=== PATIENT | female | born 1940 | race Caucasian/White ===

== ENCOUNTER 2018-04-28 09:37 | Day surgery (SDC) | payer MEDICARE, OTHER, SELFPAY ==
[2018-04-28 09:57] VITALS: BP 149/79; PULSE 71; RESP 16; TEMP 36.5; O2SAT 98
--- NOTE | 2018-04-28 11:36 | PM.HP.1 ---
History of Present Illness Date Patient Seen: 04/28/18 Time Patient Seen: 11:36 Chief complaint: colonoscopy [id number] Narrative: The patient is woman whose last colonoscopy was 15 years ago. She is here for a screening examination. No family history of colon cancer no blood in her stool. Patient History Medical History Hypertension, essential (Acute) Surgical History History of inguinal hernia repair (Resolved) Family & Social History Family History: Reviewed 04/28/18 by Melchor Bueno MD Social History: household members spouse Smoked for 10 years. Quit a long time ago. Review of Systems Review of Systems No known medication allergies. All systems reviewed & are unremarkable except as noted in HPI and below Exam Vital Signs (past 8 hours): - 04/28/18 09:57 Temperature 97.7 F Pulse Rate 71 Respiratory Rate 16 Blood Pressure 149/79 H Pulse Oximetry 98 Oxygen Delivery Method Room Air Narrative Exam Narrative: Operative no apparent distress. Her lungs are clear. Heart regular rate and rhythm without murmur gallop. Abdomen is protuberant soft nontender without mass. Liver and spleen are not enlarged. Patient is alert and oriented. Assessment & Plan Plan: Assessment/Plan Narrative: Patient for screening colonoscopy. I have discussed the procedure and the rationale with the patient including risks of bleeding, perforation which would necessitate a major operation, failure to find remove all lesions and the potential to tattoo. They appeared to understand and wished to proceed.
--- NOTE | 2018-04-28 11:40 | PM.PREOP ---
Pre-operative Note Interval Note Pre-op Check: Yes History & Physical exam performed today by Physician Changes: No ASA Class (for procedural sedation): II
[2018-04-28] MEDS: MIDAZOLAM 5 MG/5 ML VIAL IV (11:57)
[2018-04-28] MEDS: fentaNYL 250 MCG/5 ML INJ IV (11:58)
--- NOTE | 2018-04-28 12:13 | PM.OP.ENDO ---
Operative Date/Time/Diagnoses Date of procedure: 04/28/18 Time of procedure: 12:14 Pre-op diagnosis: Screening examination. Last colonoscopy 15 years ago. Post-op diagnosis: same (Sigmoid diverticulosis. Otherwise normal exam.) Procedure & Clinicians Study performed: Colonoscopy Same procedure as scheduled: Yes Indications: Screening Surgeon: Melchor Bueno Procedure Notes SCOAP/Timeout: Performed Procedure in detail: The patient was placed in the left lateral decubitus position and underwent IV sedation directed by the surgeon consisting of fentanyl and Versed. Digital exam was unremarkable. The scope was inserted and advanced through the rectum into the sigmoid, descending, transverse, and ascending colon.[The patient had extensive sigmoid diverticulosis with some tortuosity and mild narrowing.]. The cecum was reached identified by the ileocecal valve and the appendiceal opening. The ileocecal valve was[successfully] cannulated. The terminal ileum was normal in appearance. The scope was gradually brought out. No Polyps were found. The scope ultimately was retroflexed in the rectum. The appearance was[normal]. The scope was removed and the patient tolerated the procedure well Scope withdrawal time: 11 min approximate Sedation minutes: 24 Findings: diverticulosis (Sigmoid) Specimen(s): none sent Complications: none Recommendations: Other recommendation (Future colonoscopy for symptoms only. Patient exceeds the age for routine screening and has no known high risk issues.) Plan for aftercare: Follow-up with primary doctor Follow up: as needed Disposition: PACU
[2018-04-28 12:19] VITALS: BP 114/63; PULSE 69; RESP 15; TEMP 36.7
--- NOTE | 2018-04-28 12:19 | P.OP.ENDO_ITS ---
Operative Date/Time/Diagnoses Date of procedure: 04/28/18 Time of procedure: 12:14 Pre-op diagnosis: Screening examination. Last colonoscopy 15 years ago. Post-op diagnosis: same (Sigmoid diverticulosis. Otherwise normal exam.) Procedure & Clinicians Study performed: Colonoscopy Same procedure as scheduled: Yes Indications: Screening Surgeon: Melchor Bueno Procedure Notes SCOAP/Timeout: Performed Procedure in detail: The patient was placed in the left lateral decubitus position and underwent IV sedation directed by the surgeon consisting of fentanyl and Versed. Digital exam was unremarkable. The scope was inserted and advanced through the rectum into the sigmoid, descending, transverse, and ascending colon.[The patient had extensive sigmoid diverticulosis with some tortuosity and mild narrowing.]. The cecum was reached identified by the ileocecal valve and the appendiceal opening. The ileocecal valve was[ successfully] cannulated. The terminal ileum was normal in appearance. The scope was gradually brought out. No Polyps were found. The scope ultimately was retroflexed in the rectum. The appearance was[normal]. The scope was removed and the patient tolerated the procedure well Scope withdrawal time: 11 min approximate Sedation minutes: 24 Findings: diverticulosis (Sigmoid) Specimen(s): none sent Complications: none Recommendations: Other recommendation (Future colonoscopy for symptoms only. Patient exceeds the age for routine screening and has no known high risk issues. ) Plan for aftercare: Follow-up with primary doctor Follow up: as needed Disposition: PACU
[2018-04-28 12:23] VITALS: BP 131/56; PULSE 83; RESP 18; O2SAT 97
[2018-04-28 12:28] VITALS: BP 121/60; PULSE 72; RESP 15; O2SAT 98
[2018-04-28 12:35] VITALS: BP 130/68; PULSE 72; RESP 15; TEMP 36.1; O2SAT 95
== END 2018-04-28 12:48 | disposition home or self-care (01) ==
PROVIDERS: Visit Provider Specialist
PROC: 0DJD8ZZ Inspection of Lower Intestinal Tract, Via Natural or Artificial Opening Endoscopic (ICD-10-PCS; CPT 45378; principal; 2018-04-28 11:00)
DX: Z12.11 Encounter for screening for malignant neoplasm of colon (principal); K57.30 Diverticulosis of large intestine without perforation or abscess without bleeding; I10 Essential (primary) hypertension; Z87.891 Personal history of nicotine dependence
CPT/HCPCS: 45378; 99152; 99153; J2250; J3010

== ENCOUNTER 2021-01-30 10:26 | Emergency (ER) | payer MEDICARE, OTHER, SELFPAY ==
[2021-01-30] VITALS (8 sets, daily range): BP systolic 116–138; BP diastolic 63–64; PULSE 68–77; RESP 14; TEMP 36.9; O2SAT 97–100
--- NOTE | 2021-01-30 11:26 | ED.GIBLEED ---
HPI - GI Bleed General Chief complaint: GI Bleed Stated complaint: diarrhea, blood in stool Time Seen by Provider: 01/30/21 10:57 Source: patient Mode of arrival: Ambulatory Limitations: no limitations History of Present Illness HPI Narrative: Patient is an 81-year-old female. Not on anticoagulation. Was sent to the emergency department by walk-in clinic for evaluation of rectal bleeding. Patient states that over the past 24 hours she has had multiple episodes of non painful rectal bleeding. States it is bright red in color. Has not had any vomiting. No fevers. No recent antibiotics. She did recently travel to this area from [place] after spending greater than 1 year in [place]. Has had an hernia repair in the past but nothing recent. No urinary symptoms. She states she did have some abdominal discomfort prior to having the bowel movement but the actual bowel movement was not painful. Related Data Allergies Allergy/AdvReac Type Severity Reaction Status Date / Time No Known Drug Allergies Allergy Verified 01/30/21 12:05 Review of Systems Constitutional Constitutional: Denies fever(s) and Denies headache(s) ENT Ears, Nose, Mouth, and Throat: Denies headache(s) Cardiovascular Cardiovascular: Denies chest pain, Denies rapid heart rate and Denies dyspnea Respiratory Respiratory: Denies dyspnea Gastrointestinal Gastrointestinal: Denies nausea and Denies vomiting Comments: Bright red blood per rectum Genitourinary Genitourinary: Denies hematuria and Denies dysuria Genitourinary: Denies hematuria and Denies dysuria Musculoskeletal Musculoskeletal: Denies back pain and Denies myalgias Integumentary/Breasts Skin/Breast: Denies rash Neurologic Neurologic: Denies behavioral changes and Denies headache(s) Psychiatric Psychiatric: Denies behavioral changes Endocrine Endocrine: Reports system reviewed and no additional complaints, except as documented Hematologic/Lymphatic On Anticoagulants: No Allergic/Immunologic Allergic/Immunologic: Reports system reviewed and no additional complaints, except as documented Patient History Medical History (Updated 01/30/21 @ 13:12 by Aden Urbina DO) Hypertension, essential Surgical History (Updated 04/28/18 @ 11:37 by Melchor Bueno MD) History of inguinal hernia repair Social History household members: spouse Exam Initial Vital Signs Initial Vital Signs: Vital Signs Temperature 98.4 F 01/30/21 10:46 Pulse Rate 77 01/30/21 10:46 Respiratory Rate 14 01/30/21 10:46 Blood Pressure 116/63 01/30/21 10:46 Pulse Oximetry 97 01/30/21 10:46 Const General: cooperative, healthy appearing, comfortable and well developed Limitations: mental status not altered HENMT Head: normal to inspection and normocephalic Resp Effort & Inspection: normal respiratory effort Auscultation: clear to auscultation bilaterally Cardio Rate: regular rate Rhythm: regular rhythm GI Inspection: non-distended Palpation: soft, No firm and No tender Skin Lesions: no lesions Rashes: no rashes Neuro General: patient alert and patient awake Cognition: normal cognition Speech: speech normal Extrem General: normal to inspection and capillary refill normal Psych Appearance: grossly normal and well kempt Course Orders Ordered: ED Orders 01/30/21 11:20 Complete Blood Count AUTO DIFF Stat Comprehensive Metabolic Panel Stat Lipase Stat Type and Screen Stat 01/30/21 11:46 CT abdomen pelvis w con Stat Discontinued Medications Sodium Chloride (Normal Saline 0.9%) 1,000 mls @ 500 mls/hr IV BOLUS ONE Stop: 01/30/21 13:27 Last Infusion: 01/30/21 13:13 Dose: 0 mls/hr Documented by: Admin: 01/30/21 12:03 Dose: 500 mls/hr Documented by: MARGIE Vital Signs Vital signs: Vital Signs - 8 hr 01/30/21 10:46 01/30/21 11:28 01/30/21 11:30 Temperature 98.4 F Pulse Rate 77 71 75 Respiratory Rate 14 Blood Pressure 116/63 117/63 Pulse Oximetry 97 99 97 01/30/21 12:17 01/30/21 12:30 01/30/21 13:00 Temperature Pulse Rate 70 68 73 Respiratory Rate Blood Pressure Pulse Oximetry 98 100 99 01/30/21 13:13 01/30/21 13:18 Temperature Pulse Rate 76 Respiratory Rate Blood Pressure 138/64 Pulse Oximetry 99 MDM - GI Bleed Lab Data Attestation: I reviewed the patient's lab results. Result diagrams: 01/30/21 11:20 01/30/21 11:20 Labs: Lab Results 01/30/21 01/30/21 01/30/21 Range/Units 11:20 11:20 11:20 WBC 12.8 H (4.5-11.0) X10^3/uL RBC 4.38 (4.0-5.2) X10^6/uL Hgb 12.0 (12.0-16.0) g/dL Hct 36.8 (36-46) % MCV 84.1 (80-100) fL MCH 27.5 (26-34) PG MCHC 32.7 (30-36) % RDW 22.9 H (11.6-14.8) % Plt Count 245 (150-400) X10^3/uL Neut % (Auto) 82.0 H (50-75) % Lymph % (Auto) 9.9 L (25-40) % [place] % (Auto) 6.5 (3-14) % Eos % (Auto) 1.0 L (2-4) % Baso % (Auto) 0.6 (0-2) % Neut # (Auto) 11689 H (6177-1283) /uL Lymph # (Auto) 1300 (3998-5318) /uL [place] # (Auto) 800 (0-900) /uL Eos # (Auto) 100 (0-450) /uL Baso # (Auto) 100 (0-100) /uL RBC Morphology Not Reportable Poikilocytosis 1+ H Anisocytosis 2+ H Sodium 138 (137-145) mmol/L Potassium 4.0 (3.4-5.1) mmol/L Chloride 104 (98-107) mmol/L Carbon Dioxide 24 (22-32) mmol/L BUN 30 H (7-17) mg/dL Creatinine 0.91 (0.52-1.04) mg/dL Estimated GFR 59.5 L (>60) mL/min BUN/Creatinine Ratio 33.0 H (6-22) Glucose 94 (80-110) mg/dL Calcium 8.7 (8.4-10.2) mg/dL Total Bilirubin 0.5 (0.2-1.3) mg/dL AST 37 H (14-36) IU/L ALT 18 (<35) IU/L Alkaline Phosphatase 90 (38-126) U/L Total Protein 7.0 (6.3-8.2) g/dL Albumin 4.0 (3.5-5.0) g/dL Globulin 3.0 (1.7-4.1) g/dL Albumin/Globulin Ratio 1.3 (1.0-2.8) Lipase 134 (23-300) U/L Blood Type O Positive Antibody Screen Negative Imaging Data CT scan - abdomen/pelvis: Radiologist's Impression: [address] [id number] Scan ReportSigned Patient: Sheila Smith LMR#: [id number]: 1940cct:[id number]/Sex: 81 / FDate of Service: 01/30/21Loc: EDAccession Number: [id number] Procedure: CT abdomen pelvis w con Ordering Provider: Aden Urbina D.O. PROCEDURE: CT ABDOMEN PELVIS W CON INDICATIONS: Abdominal pain with rectal bleeding TECHNIQUE: After the administration of intravenous contrast, 5 mm thick sections acquired from the diaphragm to the symphysis. 5 mm coronal and sagittal reformats were acquired. For radiation dose reduction, the following was used: automated exposure control, adjustment of mA and/or kV according to patient size. COMPARISON: None. FINDINGS: Image quality: Excellent. ABDOMEN: Lung bases: Lung bases are clear. Heart size is normal. Small subcentimeter hyperdensity in the subcapsular left hepatic lobe probably reflect cyst. Gallbladder contracted but otherwise unremarkable. Biliary system is non dilated. Pancreas enhances normally. Spleen is normal in size and enhancement. No adrenal nodules. Kidneys demonstrate normal size and enhancement, without hydronephrosis. Peritoneum and bowel: There is diffuse smooth wall thickening of the descending and sigmoid colon with minimal pericolonic colonic edema which may reflect colitis. Small amount of upstream fecal retention present without obstruction. No abscess or free air. Multiple diverticula also arise from the sigmoid colon. Nodes and vessels: No retroperitoneal or mesenteric adenopathy by size criteria. Aortic atherosclerotic vascular calcification noted without evidence of aneurysm. Miscellaneous: No ventral hernias. PELVIS: Genitourinary: Bladder wall thickness is normal. Miscellaneous: No inguinal hernias or adenopathy. Bones: Right total hip arthroplasty results in beam spray artifact limiting assessment of several images. Convex left thoracolumbar scoliosis present with degenerative disc disease arthropathy. IMPRESSION: 1. Probable mild left-sided colitis without evidence of abscess or obstruction. No free air. 2. Superimposed sigmoid diverticulosis without evidence of localized diverticulitis. 3. Chronic findings include degenerative lumbar levoscoliosis and aortic atherosclerotic vascular calcification Dictated by: Jez Bailon M.D. on 01/30/2021 at 11:39 Approved by: Jez Bailon M.D. on 01/30/2021 at 11:52 MDM Narrative Medical decision making narrative: Patient is not tachycardic. Not hypotensive. Not anemic. Does have diverticulosis but no signs of diverticulitis on the CT scan. She is passing damir blood. I suspect it is the diverticula that her bleeding. Will discharge patient home with instructions to contact General surgery to discuss the indications for a colonoscopy. She was also given strict return precautions. Both her and her family was at bedside expressed understanding and agreement. Discharge Plan Departure Patient Disposition: Home Clinical Impression: Bright red blood per rectum, Diverticulosis Instructions: Gastrointestinal Bleeding Activity Restrictions/Additional Instructions: I recommend that you contact the [facility] at [phone]. I recommend a follow-up with them to discuss the indications for a colonoscopy. I also recommend contact your primary provider for a follow-up. Return to the emergency department for any chest pain, shortness of breath, lightheadedness or any other new or worsening symptoms like we discussed. Referrals: Sophy Marrero PA-C [Primary Care Provider] -
[2021-01-30 11:30] LABS: Add Manual Diff / Slide Review NO; Basophils Absolute Auto 100 /uL (0-100); Basophils Percent Auto 0.6 % (0-2); Eosinophils Absolute Auto 100 /uL (0-450); Hematocrit 36.8 % (36-46); Lymphocytes Absolute Auto 1300 /uL (1100-4500); Lymphocytes Percent Auto 9.9 % (25-40); Mean Corpuscular HGB Conc 32.7 % (30-36); Mean Corpuscular Hemoglobin 27.5 PG (26-34); Mean Corpuscular Volume 84.1 fL (80-100); Monocytes Absolute Auto 800 /uL (0-900); Monocytes Percent Auto 6.5 % (3-14); Neutrophils Absolute Auto 10500 /uL (1500-7000); Platelet Count 245 X10^3/uL (150-400); Red Blood Cell Count 4.38 X10^6/uL (4.0-5.2); Red Cell Distribution Width 22.9 % (11.6-14.8); White Blood Cell Count 12.8 X10^3/uL (4.5-11.0)
[2021-01-30 11:43] LABS: Alanine Aminotransferase 18 IU/L (<35); Albumin Globulin Ratio 1.3 (1.0-2.8); Alkaline Phosphatase 90 U/L (38-126); Aspartate Aminotransferase 37 IU/L (14-36); Bilirubin Total 0.5 mg/dL (0.2-1.3); Blood Urea Nitrogen 30 mg/dL (7-17); Calcium 8.7 mg/dL (8.4-10.2); Carbon Dioxide 24 mmol/L (22-32); Chloride 104 mmol/L (98-107); Estimated Glomerular Filt Rate 59.5 mL/min (>60); Glucose 94 mg/dL (80-110); HEMOLYSIS 33 (0-50); Lipase 134 U/L (23-300); Sodium 138 mmol/L (137-145)
[2021-01-30 11:45] LABS: Poikilocytosis 1+
[2021-01-30 11:46] LABS: Anisocytosis 2+
--- NOTE | 2021-01-30 11:46 | DI.CT.S_ITS ---
PROCEDURE: CT ABDOMEN PELVIS W CON INDICATIONS: Abdominal pain with rectal bleeding TECHNIQUE: After the administration of intravenous contrast, 5 mm thick sections acquired from the diaphragm to the symphysis. 5 mm coronal and sagittal reformats were acquired. For radiation dose reduction, the following was used: automated exposure control, adjustment of mA and/or kV according to patient size. COMPARISON: None. FINDINGS: Image quality: Excellent. ABDOMEN: Lung bases: Lung bases are clear. Heart size is normal. Small subcentimeter hyperdensity in the subcapsular left hepatic lobe probably reflect cyst. Gallbladder contracted but otherwise unremarkable. Biliary system is non dilated. Pancreas enhances normally. Spleen is normal in size and enhancement. No adrenal nodules. Kidneys demonstrate normal size and enhancement, without hydronephrosis. Peritoneum and bowel: There is diffuse smooth wall thickening of the descending and sigmoid colon with minimal pericolonic colonic edema which may reflect colitis. Small amount of upstream fecal retention present without obstruction. No abscess or free air. Multiple diverticula also arise from the sigmoid colon. Nodes and vessels: No retroperitoneal or mesenteric adenopathy by size criteria. Aortic atherosclerotic vascular calcification noted without evidence of aneurysm. Miscellaneous: No ventral hernias. PELVIS: Genitourinary: Bladder wall thickness is normal. Miscellaneous: No inguinal hernias or adenopathy. Bones: Right total hip arthroplasty results in beam spray artifact limiting assessment of several images. Convex left thoracolumbar scoliosis present with degenerative disc disease arthropathy. IMPRESSION: 1. Probable mild left-sided colitis without evidence of abscess or obstruction. No free air. 2. Superimposed sigmoid diverticulosis without evidence of localized diverticulitis. 3. Chronic findings include degenerative lumbar levoscoliosis and aortic atherosclerotic vascular calcification Dictated by: Jez Bailon M.D. on 01/30/2021 at 11:39 Approved by: Jez Bailon M.D. on 01/30/2021 at 11:52
[2021-01-30] MEDS: SODIUM CHLORIDE 0.9% 1,000 ML 500 ML IV (12:03)
== END 2021-01-30 13:30 | disposition home or self-care (01) ==
PROVIDERS: Emergency Provider Emergency Medicine; PCP Physician Assistant
DX: K57.91 Diverticulosis of intestine, part unspecified, without perforation or abscess with bleeding (principal)
CPT/HCPCS: 36415; 74177; 80053; 83690; 85025; 86850; 86900; 86901; 96360; 99284; Q9967

== ENCOUNTER → 2021-02-08 15:02 | Outpatient (ROUT) | payer MEDICARE, OTHER, SELFPAY ==
[2021-02-08 15:47] LABS: Add Manual Diff / Slide Review NO; Basophils Absolute Auto 100 /uL (0-100); Basophils Percent Auto 0.7 % (0-2); Eosinophils Absolute Auto 200 /uL (0-450); Eosinophils Percent Auto 2.9 % (2-4); Hematocrit 39.6 % (36-46); Hemoglobin 12.8 g/dL (12.0-16.0); Lymphocytes Absolute Auto 2000 /uL (1100-4500); Lymphocytes Percent Auto 26.3 % (25-40); Mean Corpuscular HGB Conc 32.3 % (30-36); Mean Corpuscular Hemoglobin 28.1 PG (26-34); Mean Corpuscular Volume 86.8 fL (80-100); Monocytes Absolute Auto 700 /uL (0-900); Monocytes Percent Auto 9.3 % (3-14); Neutrophils Absolute Auto 4600 /uL (1500-7000); Neutrophils Percent Auto 60.8 % (50-75); Platelet Count 290 X10^3/uL (150-400); Red Blood Cell Count 4.56 X10^6/uL (4.0-5.2); Red Cell Distribution Width 22.3 % (11.6-14.8); White Blood Cell Count 7.6 X10^3/uL (4.5-11.0)
[2021-02-08 15:50] LABS: Alanine Aminotransferase 16 IU/L (<35); Albumin 4.2 g/dL (3.5-5.0); Albumin Globulin Ratio 1.4 (1.0-2.8); Alkaline Phosphatase 95 U/L (38-126); Aspartate Aminotransferase 29 IU/L (14-36); BUN Creatinine Ratio 33.3 (6-22); Blood Urea Nitrogen 26 mg/dL (7-17); Calcium 9.5 mg/dL (8.4-10.2); Carbon Dioxide 25 mmol/L (22-32); Chloride 100 mmol/L (98-107); Cholesterol 161 mg/dL (140-199); Estimated Glomerular Filt Rate > 60.0 mL/min (>60); Glucose 92 mg/dL (80-110); HDL Cholesterol 54 mg/dL (40-60); HEMOLYSIS < 15 (0-50); LDL Cholesterol Calculated 85 mg/dL (<100); Sodium 136 mmol/L (137-145); Total Protein 7.2 g/dL (6.3-8.2); Triglycerides 110 mg/dL (35-150)
[2021-02-08 16:01] LABS: Anisocytosis 1+
[2021-02-08 16:20] LABS: TSH w/ Reflex to FT4 5.97 uIU/mL (0.47-4.68)
[2021-02-08 17:18] LABS: Free T4, Direct Thyroxine 1.25 ng/dL (0.78-2.19)
== END ==
PROVIDERS: PCP Physician Assistant; Visit Provider Physician Assistant
DX: E78.5 Hyperlipidemia, unspecified (principal); I10 Essential (primary) hypertension; E03.9 Hypothyroidism, unspecified
CPT/HCPCS: 80053; 80061; 84439; 84443; 85025

== ENCOUNTER → 2021-02-21 15:14 | Outpatient (CLI) | payer MEDICARE, OTHER, SELFPAY ==
[2021-02-21 16:30] LABS: Add Manual Diff / Slide Review NO; Basophils Absolute Auto 100 /uL (0-100); Basophils Percent Auto 0.7 % (0-2); Eosinophils Absolute Auto 200 /uL (0-450); Eosinophils Percent Auto 2.2 % (2-4); Hematocrit 40.3 % (36-46); Hemoglobin 13.2 g/dL (12.0-16.0); Lymphocytes Absolute Auto 2100 /uL (1100-4500); Lymphocytes Percent Auto 27.4 % (25-40); Mean Corpuscular HGB Conc 32.7 % (30-36); Mean Corpuscular Hemoglobin 28.8 PG (26-34); Monocytes Absolute Auto 700 /uL (0-900); Monocytes Percent Auto 8.6 % (3-14); Neutrophils Absolute Auto 4700 /uL (1500-7000); Neutrophils Percent Auto 61.1 % (50-75); Platelet Count 266 X10^3/uL (150-400); Red Blood Cell Count 4.57 X10^6/uL (4.0-5.2); Red Cell Distribution Width 20.7 % (11.6-14.8); White Blood Cell Count 7.7 X10^3/uL (4.5-11.0)
[2021-02-21 16:36] LABS: Anisocytosis 1+
[2021-02-21 16:50] LABS: BUN Creatinine Ratio 30.3 (6-22); Blood Urea Nitrogen 27 mg/dL (7-17); Calcium 9.1 mg/dL (8.4-10.2); Carbon Dioxide 26 mmol/L (22-32); Chloride 101 mmol/L (98-107); Estimated Glomerular Filt Rate > 60.0 mL/min (>60); Glucose 119 mg/dL (80-110); HEMOLYSIS < 15 (0-50); Potassium 4.3 mmol/L (3.4-5.1); Sodium 138 mmol/L (137-145)
[2021-02-21 16:56] LABS: Hemoglobin A1C% w Est Avg Glu 5.4 % (4.0-6.0)
== END ==
PROVIDERS: PCP Physician Assistant; Referring Provider Orthopaedic Surgery; Visit Provider Orthopaedic Surgery
DX: Z01.818 Encounter for other preprocedural examination (principal); Z01.812 Encounter for preprocedural laboratory examination; R73.9 Hyperglycemia, unspecified; M25.561 Pain in right knee
CPT/HCPCS: 36415; 80048; 83036; 85025; 93005; 93010

== ENCOUNTER → 2021-03-03 11:15 | Outpatient (CLI) | payer MEDICARE, OTHER, SELFPAY ==
[2021-03-03 14:28] LABS: COVID19 -Nasal RAPID Negative (Negative)
== END ==
PROVIDERS: PCP Physician Assistant; Referring Provider Physician Assistant; Visit Provider Physician Assistant
DX: Z01.812 Encounter for preprocedural laboratory examination (principal); Z20.822 Contact with and (suspected) exposure to COVID-19
CPT/HCPCS: 87635; C9803

== ENCOUNTER 2021-03-05 08:12 | Day surgery (SDC) | payer MEDICARE, OTHER, SELFPAY ==
[2021-02-27 09:59] VITALS: BMI 29.8
[2021-03-05] VITALS (14 sets, daily range): BP systolic 114–146; BP diastolic 52–86; PULSE 63–88; RESP 9–20; TEMP 36.1–37.1; O2SAT 94–99; BMI 29.8; BMI 26.5
--- NOTE | 2021-03-05 06:30 | DI.RAD.S_ITS ---
PROCEDURE: XR KNEE RT 1TO2V INDICATIONS: post op total knee TECHNIQUE: 2 views of the knee were acquired. COMPARISON: None. FINDINGS: Bones: Expected alignment of right knee arthroplasty. No acute fracture identified. Hardware appears intact. Soft tissues: Expected postsurgical soft tissue changes. Joint effusion IMPRESSION: Expected alignment Dictated by: Sergio Abraham M.D. on 03/05/2021 at 13:28 Approved by: Sergio Abraham M.D. on 03/05/2021 at 13:29
[2021-03-05] MEDS: ACETAMINOPHEN 325 MG TABLET 975 MG PO (08:41)
[2021-03-05] MEDS: PREGABALIN 75 MG CAPSULE PO (08:42)
[2021-03-05] MEDS: CELECOXIB 200 MG CAPSULE PO (08:42)
[2021-03-05] MEDS: LACTATED RINGERS 1,000 ML 42 ML IV ×2 (08:55→11:54)
--- NOTE | 2021-03-05 10:02 | PM.PREOP ---
Pre-operative Note COVID-19 COVID-19 status: Negative Result date/Date tested (Pos, Neg/Pending): 03/03/21 Interval Note History & Physical reviewed/Exam performed by Physician: Yes Changes to H&P: No
[2021-03-05] MEDS: CEFAZOLIN 1 GM VIAL 2 GM IV (10:48)
[2021-03-05] MEDS: TRANEXAMIC ACID 1,000 MG VIAL 1000 MG INJ ×2 (10:50→11:51)
--- NOTE | 2021-03-05 11:08 | SUR.OPER ---
Supine on padded OR bed. Pillow under head, arms secured on padded armboards <90 degree abduction. Safety belt across torso. Non-operative leg secured with tape over blanket over lower leg. Operative leg secured in DeMayo/Tunde positioner. Foam padded brace at thigh of operative leg.
[2021-03-05] MEDS: MORPHINE 4 MG/ML INJ INJ (11:16)
[2021-03-05] MEDS: BUPIVACAINE 0.25% (PF) VIAL 30 ML INJ (11:17)
[2021-03-05] MEDS: BUPIVACAINE LIPOSOME 266 MG/20 ML VIAL INJ (11:17)
--- NOTE | 2021-03-05 12:21 | P.OP_ITS ---
Operative Date/Time/Diagnoses Date of procedure: 03/05/21 Time of procedure: 12:22 Pre-op diagnosis: Right knee osteoarthritis Post-op diagnosis: same Procedure & Clinicians Procedure: right total knee replacement Same procedure as scheduled: Yes Indications: The patient has had progressively worsening right knee pain with radiographic changes consistent with arthritis. Non-operative management has failed and the patient has requested total knee replacement. The risks, benefits and alternatives to surgery were discussed with the patient prior to proceeding. Risks discussed included, but were not limited to, failure to relieve pain, stiffness, infection, nerve damage, deep venous thrombosis, pulmonary embolism, stroke, coma, heart attack, permanent paralysis and , as well as the potential need for eventual revision of the prosthetic. Surgeon: Sami Russell Inspector Soldering: Nitza Moses Anesthesia Type: General, Spinal and Local Operative Notes Findings: severe tricompartmental osteoarthritis worst in the lateral compartment. Closure Type: primary Specimen(s): none sent Prosthetic devices, grafts, tissues, transplants, or devices: Implants used in this procedure were manufactured by the [employer] and [employer] and included the BCS II Journey total knee replacement with a size 4 right cobalt chromium femur, a size 4 non porous tibial base plate, a 10 mm cross-linked polyethylene tibial insert and a 35 mm oval Mansi II patella. Applied: implant(s) Estimated Blood Loss (mL): 25 Blood products transfused: none Tourniquet time (min): 47 Procedure in detail: The patient was seen in the pre-operative area, where the patient identified the right knee as the operative site and this was marked with my initials. The patient received pre-operative antibiotics, and was taken to the operating room and placed on the operative table in the supine position. After satisfactory anesthesia, a timekeeping supervisor out was performed. The right leg was encircled with a tourniquet about the proximal thigh, and the leg was prepared from the toes to the tourniquet with ChloroPrep in the usual fashion and draped through sterile drapes. The leg was elevated and exsanguinated with Eschmark bandage and the tourniquet inflated to 250 mmHg pressure. The knee was approached through an approximately 18 cm incision centered over the patella and carried into the knee through a medial parapatellar arthrotomy. The anterior osteophytes and soft tissues were removed. The rotational landmarks of Mccurtain's line and the transepicondylar axis were marked on the femur with electrocautery, and intramedullary guide holes for the femur and tibia were created. The distal femoral cut was made in 6 degrees of valgus using the intramedullary guide at the +1 cut setting due to a mild flexion contracture. The proximal tibial cut was then made using the intramedullary guide, taking 7 mm of bone off the less involved medial side. The extension gap was checked and the rotation of the femoral component confirmed with the gap balancing system. The anterior, posterior and chamfer cuts were then made. The posterior osteophytes and soft tissues were then removed. The posterior capsule was injected with part of a mixture of 60 ml 0.25% Marcaine mixed with 20 ml Exparel and 4 mg of morphine for post-operative pain control. The remainder of this mixture was injected into the capsule and subcutaneous tissues during cement curing. The tibia was prepared with the rotation set by an extra medullary guide. Trial tibial and femoral components were then placed and the intercondylar notch cut through the femoral trial. Range of motion was 0-135 degrees, with good stability throughout the range. The patella was then cut to accommodate the patellar prosthetic. There was no need for a lateral release. The trials were then removed, and the femoral hole plugged with a bone plug. The bone was prepared with pulsatile lavage, and dried with a sponge. Cement was applied and the final prosthetics placed. Excess cement was removed during and after cement curing. After confirming there was no extruded cement posteriorly, the final tibial insert was placed. The knee was copiously irrigated and the tourniquet deflated. Hemostasis was obtained. The capsule was closed with interrupted # 2 polyester suture. The subcutaneous layer was closed with 3-0 Vicryl, and the skin with a running 3-0 V-Lock suture and Dermabond. An Aquacel Ag dressing was applied and the patient was taken to recovery having tolerated the procedure well. Complications: none Post-operative Condition: stable Disposition: PACU Plan for aftercare: The patient will be maintained on a standard total knee replacement protocol with weight bearing as tolerated. The patient will receive aspirin and sequential compression devices for DVT prophylaxis. The patient will be discharged home when safe for the home environment.
--- NOTE | 2021-03-05 13:01 | SUR.PHASEI ---
Stable PACU stay, pt transported up to room 217 and left in stable condition. Bed alarm on and call moreno in reach, pt madem aware not to get OOB w/o calling staff first.
[2021-03-05] MEDS: IBUPROFEN 400 MG TABLET PO ×3 (14:31→21:34)
[2021-03-05] MEDS: LACTATED RINGERS 1,000 ML 100 ML IV ×2 (14:32→21:31)
--- NOTE | 2021-03-05 16:34 | PT.IIE ---
Current Diagnoses Unilateral primary osteoarthritis, right knee (03/05/21) Surgery Performed Operation Date: 03/05/21 10:15 Actual Procedures p Total Knee Arthroplasty(Right) - Sami Russell MD Medical History (Last Updated 02/27/21 @ 10:54 by Makenzie Correia RN) Aneurysm DDD (degenerative disc disease) Dementia GERD (gastroesophageal reflux disease) HLD (hyperlipidemia) HTN (hypertension) Hypertension, essential Hypothyroidism Osteoarthritis Physical Therapy Inpatient Evaluation/Re-Eval M1 PT/OT-IP Prior Functional Status Start: 03/05/21 15:44 Freq: NEEDED Status: Active Protocol: Document 03/05/21 16:34 AW (Rec: 03/05/21 16:59 AW [id number]) Medical Review Prior Functional Status Medical History Reviewed Yes Communication Pt is able to make her needs known. She presents with some confusion and forgetfulness. Mobility and Gait Pt is typically independent with mobility without AD. She can usually walk her dog. She has been using a cane (hurry cane vs quad cane) for the past month or so due to increasing bilateral knee pain . Activities of Daily Living and IADL's Independent Social History Household Members family Living Arrangements House Number of Floors (Floors) One Floor Number of Stairs To Enter/Railing? Single threshhold step to enter. Home Environment High Toilet,Walk in Shower, Built-In Shower Seat Home Equipment Front Wheel Walker,Straight Cane,Hand Held Shower,Grab Bars Near Toilet Employment Status Retired Additional Social History Comment Pt lives in [place] but has traveled to [place] to stay with her son who can help her out after surgery. He has taken off a week from work. Home details above refer to her son's house. M2 PT-IP Current Condition Start: 03/05/21 15:44 Freq: NEEDED Status: Active Protocol: Document 03/05/21 16:34 AW (Rec: 03/05/21 16:59 AW [id number]) Physical Therapy Current Condition Current Condition Evaluation Date 03/05/21 Treatment Diagnosis R TKA; difficulty in walking Onset Date 03/05/21 Weight Bearing Status Weight Bearing Status Weight Bear as Tolerated M3 PT-IP Subjective Start: 03/05/21 15:44 Freq: NEEDED Status: Active Protocol: Document 03/05/21 16:34 AW (Rec: 03/05/21 16:59 AW [id number]) Subjective Physical Therapy Visit Type Type Initial Evaluation Visit Start Time 15:57 Visit Stop Time 16:34 Total Visit Minutes 37 Physical Therapy Visit Comments Patient Comments So, can I get up and walk around by myself? Patient Goals Pt hopes to discharge home with her son, Jack, who can provide assist. M4 PT-IP Mobility and Gait Start: 03/05/21 15:44 Freq: NEEDED Status: Active Protocol: Document 03/05/21 16:34 AW (Rec: 03/05/21 16:59 AW [id number]) PT-Bed Mobility Assessment Supine to Sit Supine to Sit Standby Assistance Scooting Scooting to Edge of Bed Standby Assistance PT-Transfer Assessment Sit to and From Stand Sit to and from Stand Contact Guard Assistance Equipment Transfer Assistive Device Gait Belt,Front Wheeled Walker Transfers Transfer Destination Chair Transfer Technique Stand Step Pivot Transfer Ability Level of Assist Contact Guard Assistance Comments Mobility Comments Pt was resting in bed as PT arrived. BP was 117/66 HR 70 SpO2 95% on room air. She agreed to mobilize, completing supine to sit SBA and sit to stand CGA. She used the FWW to ambulate around the room CGA with one (+) LOB laterally requiring therapist min assist to recover. After walking 30 feet in the room, pt transferred to the chair CGA and cues for hand placement. While up, she repeatedly asked Can I do this on my own later? PT reinforced safety and the need to call for all mobililty needs. Pt was left with chair alarm on, call light and tray table in reach, fresh ice pack applied. Notified RN and BRAIDED BAND ASSEMBLER of pt's impulsivity and need for close monitoring. Gait Assessment Gait Gait Assistance Required: Contact Guard Assist Distance (Feet) 30 Able to Maintain Weight Bearing Status Yes During Gait Assistive Devices Assistive Device Gait Belt,Front Wheeled Walker Orthotic/Prosthetic Devices or Brace: No Gait Deviations General Gait Pattern Antalgic,Decreased Stride Length,Decreased Feet Clearance,Step-to Gait Factors Limiting Gait Function Factors Limiting Gait Function Decreased Sensation,Decreased Strength,Limited Range of Motion,Pain,Poor Balance,Poor Safety Awareness Comments Gait Comments Pt ambulated with R hip internally rotated and foot excessively pronated. She responded well to cues for heelstrike and foot turnout. In sitting, pt naturally reverted to hip internal rotation and was left with a blanket between her legs to assist with positioning. Stair Climbing Assessment Comments Stair Climbing Comments Not assessed. PT-Balance Assessment Sitting Balance and Reactions Static Sitting Balance Ability Good Dynamic Sitting Balance Ability Good Standing Balance and Reactions Static Standing Balance Ability Good Dynamic Standing Balance Ability Fair Device Used FWW M5 PT-IP Objective Assessments Start: 03/05/21 15:44 Freq: NEEDED Status: Active Protocol: Document 03/05/21 16:34 AW (Rec: 03/05/21 16:59 AW [id number]) Orientation Orientation/Cognition Level of Alertness Confusional State Orientation Name,Month,Place,Situation Language Function Ability No Deficits Noted Safety Awareness Decreased Safety Awareness Memory Description Short Term Impaired Comments Pt asked no less than seven times Can I get up on my own when I want to? without apparent memory of having asked previously. Gross Range of Motion Lower Extremity ROM Assessment Right Impaired Strength Lower Extremity Strength Assessment Right Impaired Hip 4/5 Ankle 3/5 Comments Strength Comments LLE grossly 5/5. Sensation Assessment Sensation Gross Sensation Right LE Impaired Light Touch Impaired Proprioception (Position) Impaired Muscle Tone Muscle Tone WNL Yes M6 PT-IP Treatment Start: 03/05/21 15:44 Freq: NEEDED Status: Active Protocol: Document 03/05/21 16:34 AW (Rec: 03/05/21 16:59 AW [id number]) Physical Therapy Treatment Exercises Exercises Ankle Pumps,Quad Sets,Heel Slides,Passive Knee Extension Hang Education Education Provided Weight Bearing Status,Post-Op Packet,Safety Other Treatments Other Treatment Performed Provided education on PT plan of care, weightbearing status, rationale for use of FWW. M7 PT-IP Assessment and Plan Start: 03/05/21 15:44 Freq: NEEDED Status: Active Protocol: Document 03/05/21 16:34 AW (Rec: 03/05/21 16:59 AW [id number]) PT Summary Assessment and Plan Potential Rehabilitation Potential Good Status of Condition at Evaluation Evolving Summary Impairments Pain,ROM,Strength,Balance, Sensation,Bed Mobility, Transfers,Gait Assessment Summary Sheila is an 81 yo woman seen for PT evaluation on POD0 following R TKA. She is independent in all regards at baseline. She lives in [place] but is now staying with her son, Jack, in [place]. He will be able and available to assist the pt at discharge. On evaluation, pt presents with increased confusion and RLE weakness affecting her mobility independence. PT anticipates she will be safe to discharge home with assist and outpatient PT once medically stable. PT will follow up in the morning to arrange any necessary caregiver training. Goals Bed Mobility Goal Independent Transfer Goal Independent,Front Wheeled Walker Gait Goal Standby Assistance,Front Wheel Walker Gait Distance 100 Other Goals - up/down platform step with FWW CGA Days to Meet Goals 2 Frequency of Treatment Frequency Of Treatment Twice a Day Treatment Plan Physical Therapy Treatment Plan Bed Mobility Training,Transfer Training,Gait Training, Therapeutic Exercise,Balance Retraining,Post Op Education, Discharge Planning,Hot or Cold Pack Other Recommendations and Next Treatment check for son's availability Focus for caregiver training if needed; progress gait; review ther ex Precautions Other Precautions WBAT RLE Recommendations To Nursing Amount of Assist Needed 1 Person Assist Discharge Recommendations PT Discharge Recommendations Home with Assistance, Outpatient PT Transportation Needs at Discharge Private Vehicle
[2021-03-05] MEDS: MEMANTINE HCL 5 MG TABLET 10 MG PO (17:20)
[2021-03-05] MEDS: ACETAMINOPHEN 325 MG TABLET 650 MG PO (21:33)
[2021-03-05] MEDS: FAMOTIDINE 20 MG TABLET PO (21:34)
[2021-03-05] MEDS: DOCUSATE 100 MG CAPSULE PO (21:34)
[2021-03-05] MEDS: DONEPEZIL 5 MG TABLET 10 MG PO (21:34)
[2021-03-05] MEDS: ASPIRIN EC 81 MG TABLET PO (21:34)
[2021-03-06] MEDS: IBUPROFEN 400 MG TABLET PO ×3 (00:39→08:06)
[2021-03-06 05:02] VITALS: BP 132/76; PULSE 64; RESP 18; TEMP 36.2; O2SAT 97
[2021-03-06 05:37] LABS: Hematocrit 33.8 % (36-46); Hemoglobin 11.1 g/dL (12.0-16.0)
[2021-03-06] MEDS: PANTOPRAZOLE DR 20 MG TABLET PO (06:07)
[2021-03-06 07:30] VITALS: BP 126/57; PULSE 61; RESP 15; TEMP 35.9; O2SAT 98
--- NOTE | 2021-03-06 07:50 | PM.DS.1 ---
History of Present Illness History of Present Illness Date Patient Seen: 03/06/21 Time Patient Seen: 07:50 Chief complaint: OPB Narrative: The history and physical is contained in the chart previously completed note. Please refer to that note for this information. Discharge Providers Provider Date of admission: 03/05/21 Discharge Date: 03/06/21 Primary care physician: Sophy Marrero PA-C Consults: 03/05/21 13:07 Consult to Discharge Planning Routine Comment: Consult to Physical Therapy Evaluate & Treat Comment: Physician Instructions: postop TKA protocol Consult to Respiratory Therapy Evaluate & Treat Comment: Physician Instructions: Evaluate and treat Discharge provider: Sami Russell MD Summary Hospital Course Discharge Diagnosis: 1. Right knee osteoarthritis 2. Post hemorrhagic anemia Hospital Course: The patient was admitted to the hospital and taken directly to the operating room on March 05, 2021. She underwent a right total knee replacement without complications. She had excellent pain control and at the time of this dictation it is anticipated she will be able to be discharged with her son this afternoon. Status at Discharge Cognitive/behavioral status at discharge: at baseline, confused Functional status at discharge: uses cane/walker Overall status at discharge: patient is progressing back to baseline Time Spent with Patient Time spent: Less than 30 minutes Exam Vital Signs (past 8 hours): - 03/06/21 05:02 Temperature 97.2 F L Pulse Rate 64 Respiratory Rate 18 Blood Pressure 132/76 Pulse Oximetry 97 Oxygen Delivery Method Room Air Oxygen Flow Rate 0 Narrative Exam Narrative: Right knee wound is dressed with no drainage on the bandage. Calf is soft. Light touch and motion are intact in the right lower extremity. Objective Labs Result Diagrams: 03/06/21 05:20 Labs: Laboratory Results - last 24 hr 03/06/21 05:20 Hgb 11.1 L Hct 33.8 L PFSH Medical History (Updated 02/27/21 @ 10:54 by Makenzie Correia RN) Aneurysm DDD (degenerative disc disease) Dementia GERD (gastroesophageal reflux disease) HLD (hyperlipidemia) HTN (hypertension) Hypertension, essential Hypothyroidism Osteoarthritis Surgical History (Updated 02/27/21 @ 10:17 by Makenzie Correia RN) History of hysterectomy History of inguinal hernia repair History of total right hip arthroplasty Hx of tonsillectomy Social History household members: family Smoking Status: Former smoker alcohol intake: current Discharge Assessment & Plan Assessment and Plan Assessment: Stable postoperative day 1 status post right total knee replacement. She has a mild post hemorrhagic anemia which should not require additional treatment. Plan of Treatment: Discharge to home after physical therapy today. Follow up in my office in 10-14 days. A prescription for oxycodone has been sent to the pharmacy. Instructions have been provided for the use of aspirin, ibuprofen and Tylenol. Discharge Plan Discharge Plan Patient Disposition: Home Discharge orders & Medications Discharge Orders: Discharge (Order); Ordered 03/06/21 Ordered By: Sami Russell Prescriptions: New acetaminophen 325 mg Tablet 650 mg PO TID 30 Days Qty: 180 RF: 0 aspirin 81 mg Tablet,Delayed Release (Dr/Ec) 81 mg PO BID 42 Days Qty: 84 RF: 0 ibuprofen 400 mg Tablet 400 mg PO Q4HR 30 Days RF: 0 oxycodone 5 mg Tablet 5 mg PO Q4H PRN (Reason: Pain, Moderate (4-6)) Qty: 40 RF: 0 Continued atorvastatin 40 mg Tablet 40 mg PO DAILY RF: 0 donepezil 10 mg Tablet 10 mg PO BEDTIME RF: 0 famotidine 20 mg Tablet 20 mg PO BEDTIME RF: 0 candesartan 16 mg Tablet 16 mg PO DAILY RF: 0 omeprazole 20 mg Capsule,Delayed Release(Dr/Ec) 20 mg PO DAILY RF: 0 hydrochlorothiazide 25 mg Tablet 12.5 mg PO DAILY RF: 0 Excedrin Extra Strength 250-250-65 mg Tablet 1 tab PO Q4-6H PRN (Reason: Headache) RF: 0 memantine 10 mg Tablet 10 mg PO QPM RF: 0 diclofenac sodium 1 % Gel 4 g TOPICAL QID RF: 0 Follow up/Referrals: Sophy Marrero PA-C [Primary Care Provider] - Sami Russell MD [Physician] - 2 Weeks Diet/Activity/Treatments Diet: Diet as Tolerated and Regular Activity: You may bear weight as tolerated on your right leg. Cold/Heat Therapy: Apply ice for 15 minutes every hour as needed to the right knee for pain control. Skin/Wound/Dressing Care Report to your healthcare provider any signs of infection, such as:: chills, fever, night sweats, increased pain, unusual drainage and unusual redness Dressing: You may remove the Hussein wrap 3 days after surgery and shower normally with the deeper dressing in place. Leave the deeper dressing in place until follow-up. If the central strip becomes saturated with water or blood, please call the office. Visit Report/Discharge Packet Instructions: DI for Knee Replacement Stand Alone Forms: Surgery Discharge Discharge Data Primary Care Provider: Sophy Marrero Attending Provider: Sami Russell
[2021-03-06] MEDS: ACETAMINOPHEN 325 MG TABLET 650 MG PO (08:04)
[2021-03-06 08:05] VITALS: BP 132/76; PULSE 64
[2021-03-06] MEDS: ASPIRIN EC 81 MG TABLET PO (08:05)
[2021-03-06] MEDS: LOSARTAN 50 MG TABLET 100 MG PO (08:05)
[2021-03-06] MEDS: DOCUSATE 100 MG CAPSULE PO (08:05)
[2021-03-06] MEDS: ATORVASTATIN 20 MG TABLET 40 MG PO (08:06)
[2021-03-06] MEDS: hydroCHLOROthiazide 25 MG TABLET 12.5 MG PO (08:06)
--- NOTE | 2021-03-06 10:07 | PT.IPTN ---
Current Diagnoses Unilateral primary osteoarthritis, right knee (03/05/21) Surgery Performed Operation Date: 03/05/21 10:15 Actual Procedures p Total Knee Arthroplasty(Right) - Sami Russell MD Physical Therapy Treatment Note M2 PT-IP Current Condition Start: 03/05/21 15:44 Freq: NEEDED Status: Active Protocol: Document 03/05/21 16:34 AW (Rec: 03/05/21 16:59 AW [id number]) Physical Therapy Current Condition Current Condition Evaluation Date 03/05/21 Treatment Diagnosis R TKA; difficulty in walking Onset Date 03/05/21 Weight Bearing Status Weight Bearing Status Weight Bear as Tolerated M3 PT-IP Subjective Start: 03/05/21 15:44 Freq: NEEDED Status: Active Protocol: Document 03/06/21 09:50 [facility] (Rec: 03/06/21 10:02 AM[facility] [id number]) Subjective Physical Therapy Visit Type Type Treatment Note Visit Start Time 09:10 Visit Stop Time 09:50 Total Visit Minutes 40 Physical Therapy Visit Comments Patient Comments pt asks when she can go home with her son, she reports the jasper wrap felt a little tight so I loosened it Patient Goals Pt hopes to discharge home with her son, Jack, who can provide assist. Therapy Pain Assessment Pain When Pain Assessed During Mobility Pain Present Pain Present Pain Reported Location r knee Intensity 7 Scale Used Numeric (0 - 10) Description Pressure M4 PT-IP Mobility and Gait Start: 03/05/21 15:44 Freq: NEEDED Status: Active Protocol: Document 03/06/21 10:02 [facility] (Rec: 03/06/21 10:07 AMH [id number]) PT-Bed Mobility Assessment Supine to Sit Supine to Sit Independent Scooting Scooting to Edge of Bed Independent PT-Transfer Assessment Sit to and From Stand Sit to and from Stand Contact Guard Assistance Equipment Transfer Assistive Device Gait Belt,Front Wheeled Walker Transfers Transfer Destination Chair Transfer Technique Stand Step Pivot Transfer Ability Level of Assist Contact Guard Assistance Comments Mobility Comments pt demonstrated I bed mobility , she transfered from sit- stand with fww with CGA, pt ambulated to the bathroom with CGA, she was able to void and clean herself I. She transfered from the toilet to stand with fww and grab bar with CGA. Pt ambulated with fww in the hallway 212 feet. She needed cues for DF and to keep the right foot from pronating but she kept her balance and was CGA. Sheila was able to step up onto the platform step and back down using the FWW with CGA. She then ambulated back to the bedside chair with CGA. She was reclined comfortably and given ice to the front and back of her right knee. Her call light was placed within reach. Gait Assessment Gait Gait Assistance Required: Contact Guard Assist Distance (Feet) 230 Able to Maintain Weight Bearing Status Yes During Gait Assistive Devices Assistive Device Gait Belt,Front Wheeled Walker Orthotic/Prosthetic Devices or Brace: No Gait Deviations General Gait Pattern Antalgic,Decreased Stride Length,Decreased Feet Clearance,Step-to Gait Factors Limiting Gait Function Factors Limiting Gait Function Decreased Sensation,Decreased Strength,Limited Range of Motion,Pain,Poor Balance,Poor Safety Awareness M5 PT-IP Objective Assessments Start: 03/05/21 15:44 Freq: NEEDED Status: Active Protocol: Document 03/05/21 16:34 AW (Rec: 03/05/21 16:59 AW [id number]) Orientation Orientation/Cognition Level of Alertness Confusional State Orientation Name,Month,Place,Situation Language Function Ability No Deficits Noted Safety Awareness Decreased Safety Awareness Memory Description Short Term Impaired Comments Pt asked no less than seven times Can I get up on my own when I want to? without apparent memory of having asked previously. Gross Range of Motion Lower Extremity ROM Assessment Right Impaired Strength Lower Extremity Strength Assessment Right Impaired Hip 4/5 Ankle 3/5 Comments Strength Comments LLE grossly 5/5. Sensation Assessment Sensation Gross Sensation Right LE Impaired Light Touch Impaired Proprioception (Position) Impaired Muscle Tone Muscle Tone WNL Yes M6 PT-IP Treatment Start: 03/05/21 15:44 Freq: NEEDED Status: Active Protocol: Document 03/06/21 09:50 AM[facility] (Rec: 03/06/21 10:02 AMH [id number]) Physical Therapy Treatment Exercises Exercises Ankle Pumps,Quad Sets,Heel Slides,Passive Knee Extension Hang Education Education Provided Weight Bearing Status,Post-Op Packet,Safety Other Treatments Other Treatment Performed Provided education on PT plan of care, weightbearing status, rationale for use of FWW. Pt demonstrated I bed mobility , she transfered from sit- stand with FWW with CGA, pt ambulated to the bathroom and was able to void and clean herself afterwards. She stood with CGA. Pt ambulated in hallway 212 with fww and CGA. She demonstrated the ability to step up onto the platform step and back down with CGA and fww. The patient then ambulated to the bedside chair where she was reclined and positioned comfortably with ice on her knee. Her call light was placed within reach. M7 PT-IP Assessment and Plan Start: 03/05/21 15:44 Freq: NEEDED Status: Active Protocol: Document 03/06/21 09:50 [facility] INCLUDES THE [facility] (Rec: 03/06/21 10:02 COUNT INCLUDES THE [facility] [id number]) PT Summary Assessment and Plan Potential Rehabilitation Potential Good Status of Condition at Evaluation Evolving Summary Impairments Pain,ROM,Strength,Balance, Sensation,Bed Mobility, Transfers,Gait Assessment Summary Sheila is an 81 yo woman seen for PT treatment of R TKA. Pt denies pain at rest today but with weightbearing she did rate her pain as 7/10. This got better the more she ambulated. Pt demonstrated I bed mobility, sit-stand with CGA, she ambulated with a fww 212 ft. She was able to demonstrate a step up and down on the platform step using her fww with CGA. All of her exercises were reviewed for home. Her right foot rests in a inverted position. She has limited DF on the right and is not able to actively salvador her right foot. Sheila thinks she had weakness there before surgery but did note it seemed like more inversion than what it was before. Pt will most likely DC today home with her son. She would benefit from either home health or outpatient PT Goals Bed Mobility Goal Independent Transfer Goal Independent,Front Wheeled Walker Gait Goal Standby Assistance,Front Wheel Walker Gait Distance 100 Other Goals - up/down platform step with FWW CGA Days to Meet Goals 2 Frequency of Treatment Frequency Of Treatment Twice a Day Treatment Plan Physical Therapy Treatment Plan Bed Mobility Training,Transfer Training,Gait Training, Therapeutic Exercise,Balance Retraining,Post Op Education, Discharge Planning,Hot or Cold Pack Other Recommendations and Next Treatment check for son's availability Focus for caregiver training if needed; progress gait; review ther ex Recommendations To Nursing Amount of Assist Needed 1 Person Assist Discharge Recommendations PT Discharge Recommendations Home with Assistance, Outpatient PT Transportation Needs at Discharge Private Vehicle
--- NOTE | 2021-03-06 10:08 | CM.DANOTE ---
DCP: Case received, EMR reviewed and met with patient. Introduced self and role. Was able to obtain information from patient regarding her baseline activity status prior to her surgery, as well as her current living situation. DCP assessment completed with information currently available. Patient is an 81 year old female who admitted yesterday morning to the care of the orthopedic team. PCP: Sophy Marrero, at [facility]. Payer: confirmed: Medicare/[employer]. Patient came to the hospital for a surgical procedure. She had a total right knee. She has chronic pain secondary to her having osteoarthritis. Met with patient in her room. She is alert and oriented, pleasant. Confirmed that she is staying with her son, Omar, in [place]. She also resides in her [address] wheel in [place]. She is a . Patient does have a primary provider in this area, as well as in [place]. Patient has not been driving lately. She is independent as far as her mobility, she does have a FWW and cane if needed. Her son took a week off of work to assist her at his home. P: Patient is to be discharged home today. She will work with P.T. today prior to discharge. Denise Lay RN/Facilities Management Executive
== END 2021-03-06 10:40 | disposition home or self-care (01) ==
LOC: OR 08:15 → AC 08:16
PROVIDERS: PCP Physician Assistant; Referring Provider Orthopaedic Surgery; Visit Provider Orthopaedic Surgery
PROC: 0SRC0JZ Replacement of Right Knee Joint with Synthetic Substitute, Open Approach (ICD-10-PCS; CPT 27447; principal; 2021-03-05 10:15)
DX: M17.11 Unilateral primary osteoarthritis, right knee (principal); M17.12 Unilateral primary osteoarthritis, left knee; I10 Essential (primary) hypertension; E03.9 Hypothyroidism, unspecified; K21.9 Gastro-esophageal reflux disease without esophagitis; G30.9 Alzheimer's disease, unspecified; F02.80 Dementia in other diseases classified elsewhere, unspecified severity, without behavioral disturbance, psychotic disturbance, mood disturbance, and anxiety; E78.5 Hyperlipidemia, unspecified; E66.9 Obesity, unspecified; Z68.30 Body mass index [BMI] 30.0-30.9, adult; Z87.891 Personal history of nicotine dependence
CPT/HCPCS: 27447; 36415; 73560; 85014; 85018; 94762; 97110; 97116; 97161; 97530; C1776; A9270; C9290; J0690; J1100; J2270; J2274; J2704

== ENCOUNTER → 2021-05-18 11:26 | Outpatient (CLI) | payer MEDICARE, OTHER, SELFPAY ==
[2021-03-05 13:11] VITALS: BMI 26.5
[2021-05-18 14:25] LABS: COVID19 -Nasal RAPID Negative (Negative)
== END ==
PROVIDERS: PCP Physician Assistant; Visit Provider Nurse Practitioner
DX: Z20.822 Contact with and (suspected) exposure to COVID-19 (principal)
CPT/HCPCS: 87635; C9803

== ENCOUNTER 2024-08-23 15:06 | Emergency (ER) | payer MEDICARE, OTHER, SELFPAY ==
[2021-03-05 13:11] VITALS: BMI 26.5
[2024-08-23] VITALS (13 sets, daily range): BP systolic 136–190; BP diastolic 62–87; PULSE 67–110; RESP 17–24; TEMP 36.7; O2SAT 94–99; BMI 26.5
[2024-08-23 16:54] LABS: Add Manual Diff / Slide Review NO; Basophils Absolute Auto 100 /uL (0-100); Basophils Percent Auto 1.3 % (0-2); Eosinophils Absolute Auto 200 /uL (0-450); Eosinophils Percent Auto 1.9 % (2-4); Hematocrit 40.9 % (36-46); Hemoglobin 13.3 g/dL (12.0-16.0); Lymphocytes Absolute Auto 2300 /uL (1100-4500); Mean Corpuscular HGB Conc 32.4 % (30-36); Mean Corpuscular Hemoglobin 29.7 PG (26-34); Mean Corpuscular Volume 91.7 fL (80-100); Monocytes Absolute Auto 900 /uL (0-900); Monocytes Percent Auto 9.5 % (3-14); Neutrophils Absolute Auto 5700 /uL (1500-7000); Neutrophils Percent Auto 62.3 % (50-75); Platelet Count 340 X10^3/uL (150-400); Red Blood Cell Count 4.46 X10^6/uL (4.0-5.2); Red Cell Distribution Width 14.8 % (11.6-14.8); White Blood Cell Count 9.2 X10^3/uL (4.5-11.0)
[2024-08-23 16:59] LABS: Alanine Aminotransferase 21 IU/L (<35); Albumin 4.4 g/dL (3.5-5.0); Albumin Globulin Ratio 1.5 (1.0-2.8); Alkaline Phosphatase 77 U/L (38-126); Aspartate Aminotransferase 34 IU/L (14-36); BUN Creatinine Ratio 25.6 (6-22); Bilirubin Total 0.7 mg/dL (0.2-1.3); Blood Urea Nitrogen 21 mg/dL (7-17); Calcium 9.2 mg/dL (8.4-10.2); Carbon Dioxide 24 mmol/L (22-32); Chloride 103 mmol/L (98-107); Estimated Glomerular Filt Rate > 60 mL/min (>60); Glucose 93 mg/dL (80-110); Lipase 138 U/L (23-300); Potassium 4.1 mmol/L (3.4-5.1); Sodium 137 mmol/L (137-145); Total Protein 7.4 g/dL (6.3-8.2)
[2024-08-23 17:01] LABS: Ictotest Urine Negative (Negative)
[2024-08-23 17:01] LABS: HEMOLYSIS 51 (0-50)
[2024-08-23 17:02] LABS: Bacteria Urine Moderate (10-30); Culture Indicated Urine Specimen Cultured; Mucus Urine 1+ (Negative); RBC Urine 1-5/HPF (0-5/HPF); Renal Epithelial Cells Urine 1-5/HPF (0-1/HPF); Squamous Epithelial Cell Urine 10-30 /HPF (0-5/HPF); Urine Volume 10mL (spun); WBC Urine 5-10/HPF (0-5/HPF)
--- NOTE | 2024-08-23 18:12 | DI.CT.S_ITS ---
PROCEDURE: CT HEAD/BRAIN WO CON INDICATIONS: AMS after fall TECHNIQUE: Noncontrast 4.5 mm thick angled axial sections acquired from the foramen magnum to the vertex, with coronal and sagittal reformats. For radiation dose reduction, the following was used: automated exposure control, adjustment of mA and/or kV according to patient size. COMPARISON: None. FINDINGS: Image quality: Diagnostic. CSF spaces: Basal cisterns are patent. No extra-axial fluid collections. The ventricles are symmetric in size and shape. Brain: Isodense 4 mm subdural hemorrhage along the left parietal lobe as well as the right anterior parafalcine region (2/22) without any significant mass effect (4/31; 2/22). No other intracranial bleeds or masses. There is cerebral volume loss for age, with resultant ventricular and sulcal prominence. There are periventricular and deep white matter chronic small vessel ischemic changes. There is intracranial internal carotid artery atherosclerosis. Skull and face: Prior right frontal temporal cranioplasty. Calvarium and visualized facial bones appear intact, without suspicious lesions. Sinuses: Visualized sinuses and mastoids are clear. IMPRESSION: Isodense left cerebral convexity and right parafalcine region subdural hemorrhages without mass effect. These may be subacute or related to underlying anemia or coagulopathy. These findings were communicated via telephone to the ordering provider, Dr Urbina, by Adrian Hall MD on 08/23/2024 at 7:11 p.m.. Dictated by: Adrian Hall M.D. on 08/23/2024 at 19:04 Approved by: Adrian Hall M.D. on 08/23/2024 at 19:12
--- NOTE | 2024-08-23 19:27 | ED_ITS ---
HPI - Headache General Chief Complaint: Headache Stated Complaint: vomiting, BRICENO x 2wks, AMS Time Seen by Provider: 08/23/24 18:55 Source: patient and family Mode of arrival: Ambulatory History of Present Illness HPI Narrative: Patient was an 84-year-old female. Not on anticoagulation. At the end of November patient sustained a fall while living in [place]. According to family friend who is with her at bedside she did spend some time in a rehab facility and has been living locally since February. She does have a history of cognitive impairment/dementia. She was here for evaluation because over the past 2 weeks the patient has been complaining of a headache. She has been receiving Tylenol. She was also been vomiting every evening. She currently is not feeling nauseous. There has been no reported further falls although family and friends state that she was not observed 24 hours a day. Patient reports a ?slight? headache. The vomiting does not seem to be associated with eating. That she was not taking nausea medicine. She does not vomit during the day. She was ambulatory. Related Data Home Medications Medication Instructions Recorded Confirmed [id number] 250 1 tab PO Q4-6H PRN Headache 02/27/21 05/17/21 mg-250 mg-65 mg tablet (Excedrin Extra Strength) atorvastatin 40 mg tablet 40 mg PO DAILY 02/27/21 05/17/21 candesartan 16 mg tablet 16 mg PO DAILY 02/27/21 05/17/21 diclofenac sodium 1 % topical gel 4 g topical QID 02/27/21 05/17/21 donepezil 10 mg tablet 10 mg PO BEDTIME 02/27/21 05/17/21 famotidine 20 mg tablet 20 mg PO BEDTIME 02/27/21 05/17/21 hydrochlorothiazide 25 mg tablet 12.5 mg PO DAILY 02/27/21 05/17/21 memantine 10 mg tablet 10 mg PO QPM 02/27/21 05/17/21 omeprazole 20 mg capsule,delayed 20 mg PO DAILY 02/27/21 05/17/21 release Previous Rx's Medication Instructions Recorded oxycodone 5 mg tablet 5 mg PO Q4H PRN Pain, Moderate 03/06/21 (4-6) #40 tabs ondansetron 4 mg disintegrating 4 mg PO Q6H PRN nausea and 08/23/24 tablet vomiting #10 tabs Allergies Allergy/AdvReac Type Severity Reaction Status Date / Time No Known Drug Allergies Allergy Verified 08/23/24 15:12 Review of Systems Review of Systems ROS Unobtainable: All systems reviewed & are unremarkable except as noted in HPI and below Patient History Medical History DDD (degenerative disc disease) Hypothyroidism Osteoarthritis GERD (gastroesophageal reflux disease) HLD (hyperlipidemia) HTN (hypertension) Aneurysm Dementia Hypertension, essential Surgical History (Updated 05/17/21 @ 08:29 by Makenzie Correia RN) History of arthroplasty of right knee (03/05/21) History of total right hip arthroplasty Hx of tonsillectomy History of hysterectomy History of inguinal hernia repair Social History household members: family and children Smoking Status: Former smoker alcohol intake: current Smoking Status: Former smoker alcohol intake frequency: a few times a month Exam Initial Vital Signs Initial Vital Signs: Vital Signs Temperature 98.1 F 08/23/24 15:13 Pulse Rate 89 08/23/24 15:13 Respiratory Rate 17 08/23/24 15:13 Blood Pressure 136/62 08/23/24 15:13 Pulse Oximetry 99 08/23/24 15:13 Oxygen Delivery Method Room Air 08/23/24 15:13 Const General: cooperative, comfortable and No ill appearing HENMT Head: normal to inspection and normocephalic Resp Effort & Inspection: normal respiratory effort Auscultation: clear to auscultation bilaterally Cardio Rate: regular rate Rhythm: regular rhythm Skin General: no rashes or lesions noted Neuro General: patient alert and moves all extremities Other: Patient was alert to person and place. She does not know what year it is. She does know her date. She knows that she lives with her son in his girlfriend. Extrem General: normal to inspection and capillary refill normal Course Orders Ordered: ED Orders 08/23/24 18:12 CT head/brain wo con Stat 08/23/24 22:15 CT head/brain wo con Stat Discontinued Medications Ondansetron HCl (Ondansetron 4 Mg/2 Ml Inj) 4 mg IV NOW PRN PRN Reason: Nausea And Vomiting Ondansetron HCl (Ondansetron 4 Mg Odt) 4 mg PO NOW PRN PRN Reason: Nausea And Vomiting Ondansetron HCl (Ondansetron 4 Mg Odt Prepack) 1 bottle MISC DIRECTED ONE Stop: 08/23/24 23:26 Last Admin: 08/23/24 23:31 Dose: 1 bottle Documented By: ALEC Vital Signs Vital signs: Vital Signs - 8 hr 08/23/24 19:10 08/23/24 19:30 08/23/24 19:30 Pulse Rate 69 74 Respiratory Rate 18 Blood Pressure 190/86 H Pulse Oximetry 98 98 Oxygen Delivery Method Room Air Room Air 08/23/24 20:00 08/23/24 20:00 08/23/24 20:30 Pulse Rate 71 Respiratory Rate 18 Blood Pressure 181/80 H 181/81 H Pulse Oximetry 98 Oxygen Delivery Method 08/23/24 20:30 08/23/24 21:00 08/23/24 21:01 Pulse Rate 69 69 69 Respiratory Rate 17 Blood Pressure Pulse Oximetry 97 98 98 Oxygen Delivery Method Room Air 08/23/24 21:01 08/23/24 21:30 08/23/24 21:30 Pulse Rate 68 Respiratory Rate 18 Blood Pressure 178/83 H 163/87 H Pulse Oximetry 97 Oxygen Delivery Method Room Air 08/23/24 22:00 08/23/24 22:10 08/23/24 22:10 Pulse Rate 74 110 H Respiratory Rate Blood Pressure 180/84 H Pulse Oximetry 94 98 Oxygen Delivery Method 08/23/24 22:30 08/23/24 22:30 08/23/24 23:00 Pulse Rate 69 67 Respiratory Rate 18 Blood Pressure 162/74 H Pulse Oximetry 97 96 Oxygen Delivery Method Room Air Room Air 08/23/24 23:00 08/23/24 23:30 08/23/24 23:30 Pulse Rate 70 Respiratory Rate 24 Blood Pressure 156/72 H 143/71 H Pulse Oximetry 98 Oxygen Delivery Method MDM - Headache Medical Records Attestation: I reviewed the patient's medical records. Lab Data Attestation: I reviewed the patient's lab results. 08/23/24 16:42 08/23/24 16:42 Labs: Lab Results 08/23/24 08/23/24 Range/Units 16:31 16:42 WBC 9.2 (4.5-11.0) X10^3/uL RBC 4.46 (4.0-5.2) X10^6/uL Hgb 13.3 (12.0-16.0) g/dL Hct 40.9 (36-46) % MCV 91.7 (80-100) fL MCH 29.7 (26-34) PG MCHC 32.4 (30-36) % RDW 14.8 (11.6-14.8) % Plt Count 340 (150-400) X10^3/uL Neut % (Auto) 62.3 (50-75) % Lymph % (Auto) 25.0 (25-40) % [place] % (Auto) 9.5 (3-14) % Eos % (Auto) 1.9 L (2-4) % Baso % (Auto) 1.3 (0-2) % Neut # (Auto) 5700 (5746-9614) /uL Lymph # (Auto) 2300 (3104-5429) /uL [place] # (Auto) 900 (0-900) /uL Eos # (Auto) 200 (0-450) /uL Baso # (Auto) 100 (0-100) /uL Sodium 137 (137-145) mmol/L Potassium 4.1 (3.4-5.1) mmol/L Chloride 103 (98-107) mmol/L Carbon Dioxide 24 (22-32) mmol/L BUN 21 H (7-17) mg/dL Creatinine 0.82 (0.52-1.04) mg/dL Estimated GFR > 60 (>60) mL/min BUN/Creatinine Ratio 25.6 H (6-22) Glucose 93 (80-110) mg/dL Calcium 9.2 (8.4-10.2) mg/dL Magnesium 2.0 (1.6-2.3) mg/dL Total Bilirubin 0.7 (0.2-1.3) mg/dL AST 34 (14-36) IU/L ALT 21 (<35) IU/L Alkaline Phosphatase 77 (38-126) U/L Total Protein 7.4 (6.3-8.2) g/dL Albumin 4.4 (3.5-5.0) g/dL Globulin 3.0 (1.7-4.1) g/dL Albumin/Globulin Ratio 1.5 (1.0-2.8) Lipase 138 (23-300) U/L Ur Bilirubin Confirm Negative (Negative) Urine RBC 1-5/hpf (0-5/HPF) Urine WBC 5-10/hpf H (0-5/HPF) Ur Squamous Epith Cells 10-30 /hpf H (0-5/HPF) Ur Renal Epithelial Cell 1-5/hpf H (0-1/HPF) Urine Bacteria Moderate (10-30) H (None) Urine Mucus 1+ H (Negative) Ur Culture Indicated? Specimen cultured Vol Urine Centrifuged 10ml (spun) Urine Dip Bedside Urine Glucose Negative Bedside Urine Bilirubin + 1 Bedside Urine Ketone +/- 5 Urine Specific [place] 1.015 Bedside Urine Occult Blood - Negative Bedside Urine pH 5.5 Bedside Urine Protein +/- 15 Bedside Urine Urobilinogen - Negative Bedside Urine Nitrite - Negative Bedside Urine Leukocytes ++ [address] scan - head: Radiologist's Impression: PROCEDURE: CT HEAD/BRAIN WO CON INDICATIONS: AMS after fall TECHNIQUE: Noncontrast 4.5 mm thick angled axial sections acquired from the foramen magnum to the vertex, with coronal and sagittal reformats. For radiation dose reduction, the following was used: automated exposure control, adjustment of mA and/or kV according to patient size. COMPARISON: None. FINDINGS: Image quality: Diagnostic. CSF spaces: Basal cisterns are patent. No extra-axial fluid collections. The ventricles are symmetric in size and shape. Brain: Isodense 4 mm subdural hemorrhage along the left parietal lobe as well as the right anterior parafalcine region (2/22) without any significant mass effect (4/31; 2/22). No other intracranial bleeds or masses. There is cerebral volume loss for age, with resultant ventricular and sulcal prominence. There are periventricular and deep white matter chronic small vessel ischemic changes. There is intracranial internal carotid artery atherosclerosis. Skull and face: Prior right frontal temporal cranioplasty. Calvarium and visualized facial bones appear intact, without suspicious lesions. Sinuses: Visualized sinuses and mastoids are clear. IMPRESSION: Isodense left cerebral convexity and right parafalcine region subdural hemorrhages without mass effect. These may be subacute or related to underlying anemia or coagulopathy. These findings were communicated via telephone to the ordering provider, Dr Urbina, by Adrian Hall MD on 08/23/2024 at 7:[address]: Radiologist's Impression: PROCEDURE: CT HEAD/BRAIN WO CON INDICATIONS: 4 hour follow up for subdural TECHNIQUE: Noncontrast 4.5 mm thick angled axial sections acquired from the foramen magnum to the vertex, with coronal and sagittal reformats. For radiation dose reduction, the following was used: automated exposure control, adjustment of mA and/or kV according to patient size. COMPARISON: [facility], CT, CT HEAD/BRAIN WO CON, 08/23/2024, 18:26. FINDINGS: Image quality: Diagnostic. CSF spaces: Stable anterior para falcine hyperattenuating fluid, without significant mass effect (series 2, image 24). Stable chronic left subdural hematoma versus cystic hygroma period stable chronic collection overlying the right cerebral convexity with internal calcifications. Brain: No intracranial bleeds or masses. There is cerebral volume loss for age, with resultant ventricular and sulcal prominence. There are periventricular and deep white matter chronic small vessel ischemic changes. There is intracranial internal carotid artery atherosclerosis. Skull and face: Calvarium and visualized facial bones appear intact, without suspicious lesions. Sinuses: Visualized sinuses and mastoids are clear. IMPRESSION: Stable hyper attenuate fluid along the anterior parafalcine region. No mass effect or herniation. Stable chronic left subdural hematoma versus cystic hygroma. Stable fluid collection with calcifications overlying the right cerebral convexity. [facility] Narrative Medical decision making narrative: He was able to obtain records from [facility] which is where she was evaluated in [facility]. He was able to obtain a CT head result dated 12/18/2023 that stated that the patient had bilateral subdural hematomas. 1.4 cm in the left and 1.2 cm on the right. There was a comparison head CT dated 12/04/2023. It appears that at that time the subdural hematomas were unchanged. Today initial head CT shows bilateral subdural hematomas that according to the report from 12/18/2023 they appeared to be improved today. A 4 hour repeat shows no change. I did discuss the case with Dr. Quevedo neurosurgery at [facility] who stated that no intervention needed. Further discussion with the family it appears that the patient does have a referral to see Gastroenterology because of the vomiting that was placed when she was seen at an outside walk-in clinic several days ago. That appointment is until the middle next month. She was a benign exam today. Will discharge home with a prescription for nausea medication. Was no indication for admission to the. They were given return precautions. He expressed understanding agreement with the plan. Discharge Plan Departure Patient Disposition: Home Clinical Impression: Headache, Subdural hemorrhage Instructions: DI for Headache Activity Restrictions/Additional Instructions: Use the nausea medication as needed. Continue with the Tylenol any headaches. I do think that following up with the executive consultant as appropriate. Return to the emergency department for new symptoms. Prescriptions: New ondansetron 4 mg tablet,disintegrating 4 mg PO Q6H PRN (Reason: nausea and vomiting) Qty: 10 0RF No Action atorvastatin 40 mg Tablet 40 mg PO DAILY donepezil 10 mg Tablet 10 mg PO BEDTIME famotidine 20 mg Tablet 20 mg PO BEDTIME candesartan 16 mg Tablet 16 mg PO DAILY omeprazole 20 mg Capsule,Delayed Release(Dr/Ec) 20 mg PO DAILY hydrochlorothiazide 25 mg Tablet 12.5 mg PO DAILY Excedrin Extra Strength 250-250-65 mg Tablet 1 tab PO Q4-6H PRN (Reason: Headache) memantine 10 mg Tablet 10 mg PO QPM diclofenac sodium 1 % Gel 4 g TOPICAL QID oxycodone 5 mg Tablet 5 mg PO Q4H PRN (Reason: Pain, Moderate (4-6)) Qty: 40 0RF Referrals: Erica Vaughn PA-C [Primary Care Provider] - Stand Alone Forms: Patient Portal/API/Survey
--- NOTE | 2024-08-23 22:15 | DI.CT.S_ITS ---
PROCEDURE: CT HEAD/BRAIN WO CON INDICATIONS: 4 hour follow up for subdural TECHNIQUE: Noncontrast 4.5 mm thick angled axial sections acquired from the foramen magnum to the vertex, with coronal and sagittal reformats. For radiation dose reduction, the following was used: automated exposure control, adjustment of mA and/or kV according to patient size. COMPARISON: [facility], CT, CT HEAD/BRAIN WO CON, 08/23/2024, 18:26. FINDINGS: Image quality: Diagnostic. CSF spaces: Stable anterior para falcine hyperattenuating fluid, without significant mass effect (series 2, image 24). Stable chronic left subdural hematoma versus cystic hygroma period stable chronic collection overlying the right cerebral convexity with internal calcifications. Brain: No intracranial bleeds or masses. There is cerebral volume loss for age, with resultant ventricular and sulcal prominence. There are periventricular and deep white matter chronic small vessel ischemic changes. There is intracranial internal carotid artery atherosclerosis. Skull and face: Calvarium and visualized facial bones appear intact, without suspicious lesions. Sinuses: Visualized sinuses and mastoids are clear. IMPRESSION: Stable hyper attenuate fluid along the anterior parafalcine region. No mass effect or herniation. Stable chronic left subdural hematoma versus cystic hygroma. Stable fluid collection with calcifications overlying the right cerebral convexity. Dictated by: Levi Shay M.D. on 08/23/2024 at 22:24 Approved by: Levi Shay M.D. on 08/23/2024 at 22:27
[2024-08-23] MEDS: ONDANSETRON 4 MG ODT PREPACK 1 BOTTLE MISC (23:31)
== END 2024-08-23 23:41 | disposition home or self-care (01) ==
PROVIDERS: Emergency Medicine; Emergency Provider Emergency Medicine; PCP Physician Assistant
DX: R51.9 Headache, unspecified (principal); S06.5XAD Traumatic subdural hemorrhage with loss of consciousness status unknown, subsequent encounter; W19.XXXD Unspecified fall, subsequent encounter
CPT/HCPCS: 36415; 70450; 80053; 81003; 81015; 83690; 83735; 85025; 87086; 99284

== ENCOUNTER 2024-12-19 16:57 | Emergency (ER) | payer MEDICARE, OTHER, SELFPAY ==
[2021-03-05 13:11] VITALS: BMI 26.5
[2024-12-19] VITALS (15 sets, daily range): BP systolic 145–206; BP diastolic 70–97; PULSE 75–93; RESP 18–29; TEMP 36.9; O2SAT 96–98; BMI 26.4
--- NOTE | 2024-12-19 17:13 | DI.RAD.S_ITS ---
PROCEDURE: XR CHEST 1V INDICATIONS: Shortness of breath TECHNIQUE: One view of the chest was acquired. COMPARISON: None. FINDINGS: Surgical changes and devices: None. Lungs and pleura: An incomplete inspiratory result is noted, causing a crowded appearance to the lung markings. No focal infiltrates are seen. No pneumothorax or significant pleural effusions are seen. Mediastinum: The cardiac contours are within normal limits. The aorta demonstrates calcification and tortuosity. Bones and chest wall: No suspicious bony lesions. Degenerative changes are seen, including involving the shoulders. Remote deformity can be seen of the left humeral head. Overlying soft tissues appear unremarkable. IMPRESSION: No acute cardiopulmonary abnormality is seen. Dictated by: Kai Simmons M.D. on 12/19/2024 at 16:58 Approved by: Kai Simmons M.D. on 12/19/2024 at 16:58
--- NOTE | 2024-12-19 17:26 | EKG_ITS ---
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
[2024-12-19 17:38] LABS: Add Manual Diff / Slide Review NO; Basophils Absolute Auto 0 /uL (0-100); Basophils Percent Auto 0.7 % (0-2); Eosinophils Absolute Auto 300 /uL (0-450); Eosinophils Percent Auto 5.6 % (2-4); Hematocrit 32.5 % (36-46); Hemoglobin 10.4 g/dL (12.0-16.0); Lymphocytes Absolute Auto 1400 /uL (1100-4500); Lymphocytes Percent Auto 26.7 % (25-40); Mean Corpuscular HGB Conc 31.9 % (30-36); Mean Corpuscular Hemoglobin 24.4 PG (26-34); Mean Corpuscular Volume 76.4 fL (80-100); Monocytes Absolute Auto 700 /uL (0-900); Monocytes Percent Auto 12.7 % (3-14); Neutrophils Absolute Auto 2900 /uL (1500-7000); Neutrophils Percent Auto 54.3 % (50-75); Platelet Count 264 X10^3/uL (150-400); Red Blood Cell Count 4.25 X10^6/uL (4.0-5.2); Red Cell Distribution Width 18.1 % (11.6-14.8); White Blood Cell Count 5.3 X10^3/uL (4.5-11.0)
[2024-12-19 17:46] LABS: INR 1.1 (0.9-1.3); Prothrombin Time 12.2 SECONDS (9.4-12.5)
[2024-12-19 17:50] LABS: Lactate (Lactic Acid) 1.3 mmol/L (0.7-2.1)
[2024-12-19 17:51] LABS: Alanine Aminotransferase 19 IU/L (<35); Albumin 3.8 g/dL (3.5-5.0); Albumin Globulin Ratio 1.3 (1.0-2.8); Alkaline Phosphatase 86 U/L (38-126); Aspartate Aminotransferase 29 IU/L (14-36); BUN Creatinine Ratio 21.1 (6-22); Bilirubin Total 0.4 mg/dL (0.2-1.3); Blood Urea Nitrogen 16 mg/dL (7-17); Calcium 8.3 mg/dL (8.4-10.2); Carbon Dioxide 25 mmol/L (22-32); Chloride 105 mmol/L (98-107); Estimated Glomerular Filt Rate > 60 mL/min (>60); Glucose 89 mg/dL (80-110); HEMOLYSIS < 15 (0-50); Potassium 3.7 mmol/L (3.4-5.1); Sodium 138 mmol/L (137-145); Total Protein 6.8 g/dL (6.3-8.2)
[2024-12-19 18:03] LABS: NT-proBNP (BNP-Adult 18+) 851 pg/mL (<450); Troponin I < 0.012 ng/mL (0.01-0.034)
--- NOTE | 2024-12-19 18:07 | ED.GENADULT ---
HPI - General Adult General Chief complaint: Shortness of Breath/Dyspnea Stated complaint: cough t-30, wheezing in chest, sob Time Seen by Provider: 12/19/24 18:06 Source: patient Mode of arrival: Ambulatory History of Present Illness HPI narrative: 84-year-old woman with dementia who lives with her son, hypertension, hyperlipidemia, reflux who comes in today with cough and wheezing. She states she has had a cold for the last month and symptoms are not improving. She was seen at a walk-in clinic yesterday prescribed Augmentin and has has 2 doses of that so far. She is audibly wheezing from hallway, significant cough, appears significantly fatigued that maintaining an airway. She is only able to speak in 2-3 word sentences between the cough in the wheeze. Her son notes she has been having some vomiting typically in the evenings before bed. No chest pain beyond that related to direct coughing, no palpitations. She does not typically wheeze nor need inhalers. She does have a distant history of smoking but has not smoked for almost 20 years. Neither she nor the son note that she has been having fevers. No orthopnea, no lower extremity edema. Related Data Home Medications Medication Instructions Recorded Confirmed [id number] 250 1 tab PO Q4-6H PRN Headache 02/27/21 05/17/21 mg-250 mg-65 mg tablet (Excedrin Extra Strength) atorvastatin 40 mg tablet 40 mg PO DAILY 02/27/21 05/17/21 candesartan 16 mg tablet 16 mg PO DAILY 02/27/21 05/17/21 diclofenac sodium 1 % topical gel 4 g topical QID 02/27/21 05/17/21 donepezil 10 mg tablet 10 mg PO BEDTIME 02/27/21 05/17/21 famotidine 20 mg tablet 20 mg PO BEDTIME 02/27/21 05/17/21 hydrochlorothiazide 25 mg tablet 12.5 mg PO DAILY 02/27/21 05/17/21 memantine 10 mg tablet 10 mg PO QPM 02/27/21 05/17/21 omeprazole 20 mg capsule,delayed 20 mg PO DAILY 02/27/21 05/17/21 release Previous Rx's Medication Instructions Recorded oxycodone 5 mg tablet 5 mg PO Q4H PRN Pain, Moderate 03/06/21 (4-6) #40 tabs ondansetron 4 mg disintegrating 4 mg PO Q6H PRN nausea and 08/23/24 tablet vomiting #10 tabs doxycycline hyclate 100 mg capsule 100 mg PO BID #20 caps 12/19/24 prednisone 20 mg tablet 20 mg PO DAILY #5 tabs 12/19/24 Allergies Allergy/AdvReac Type Severity Reaction Status Date / Time No Known Drug Allergies Allergy Verified 08/23/24 15:12 Review of Systems Review of Systems Narrative: Pertinent positive and negative findings as per HPI Patient History Medical History DDD (degenerative disc disease) Hypothyroidism Osteoarthritis GERD (gastroesophageal reflux disease) HLD (hyperlipidemia) HTN (hypertension) Aneurysm Dementia Hypertension, essential Surgical History History of arthroplasty of right knee (03/05/21) History of total right hip arthroplasty Hx of tonsillectomy History of hysterectomy History of inguinal hernia repair Social History household members: family and children Smoking Status: Former smoker alcohol intake: current Smoking Status: Former smoker alcohol intake frequency: a few times a month Exam Initial Vital Signs Initial Vital Signs: Vital Signs Temperature 98.4 F 12/19/24 17:01 Pulse Rate 82 12/19/24 17:01 Respiratory Rate 18 12/19/24 17:01 Blood Pressure 145/70 H 12/19/24 17:01 Pulse Oximetry 96 12/19/24 17:01 Oxygen Delivery Method Room Air 12/19/24 17:01 General: Older appearing, appears generally unwell, significant nonproductive cough, audible wheeze, able to speak in 3-4 word sentences HEENT: Moist mucous membranes, normal sclera with reactive pupils, Neck: No JVD, no cervical adenopathy Respiratory: Lungs with wheeze in all lung mitchell, rhonchi in the bases bilaterally Cardiac: Regular rate and rhythm no murmurs no bruits Abdomen: Soft, nontender, no rebound or guarding, no flank pain Skin: Slightly pale, poor skin turgor, no diaphoresis, no rashes Neurologic: Globally weak but otherwise Grossly neurologically intact with no obvious asymmetries or abnormalities Extremities: No trauma, no edema Psych: Cooperative, some cognitive decline but appropriate thought content Course Orders Ordered: ED Orders 12/19/24 17:13 XR chest 1V Stat EKG-12 Lead Stat Measure peak expiratory flow ONCE RT Consult Eval and Treat NOW 12/19/24 17:18 Covid-19 + FLU A/B + RSV - PCR Stat Respiratory Panel (Film Array) Stat 12/19/24 17:25 Complete Blood Count AUTO DIFF Stat Comprehensive Metabolic Panel Stat D Dimer Stat Lactate (Lactic Acid) Stat NT-proBNP (BNP-Adult 18+) Stat Prothrombin Time INR Stat Troponin I Stat 12/19/24 19:21 UA Complete [Urinalysis and Microscopic] Stat Discontinued Medications Albuterol/Ipratropium (Albuterol/Ipratropium 3 Ml Ampul) 3 ml INH NOW ONE Stop: 12/19/24 18:24 Last Admin: 12/19/24 18:59 Dose: 3 ml Documented By: OLIVIA Sodium Chloride (Normal Saline 0.9%) 1,000 mls @ 1,000 mls/hr IV BOLUS ONE Stop: 12/19/24 19:22 Last Infusion: 12/19/24 20:26 Dose: Infused Documented By: Admin: 12/19/24 19:36 Dose: 1,000 mls/hr Documented By: TRACY Magnesium Sulfate (Magnesium Sulfate) 2 gm in 50 mls @ 150 mls/hr IV NOW ONE Stop: 12/19/24 18:42 Last Infusion: 12/19/24 19:30 Dose: Infused Documented By: TRACY Co-signed By: SHANNAN Admin: 12/19/24 18:53 Dose: 150 mls/hr Documented By: COLE Co-signed By: TEREZA Losartan Potassium (Losartan 50 Mg Tablet) 100 mg PO NOW ONE Stop: 12/19/24 19:30 Last Admin: 12/19/24 19:46 Dose: 100 mg Documented By: TRACY Methylprednisolone (Methylprednisolone 125 Mg/2 Ml Vial) 125 mg IV NOW ONE Stop: 12/19/24 18:24 Last Admin: 12/19/24 18:52 Dose: 125 mg Documented By: COLE Vital Signs Vital signs: Vital Signs - 8 hr 12/19/24 17:01 12/19/24 17:20 12/19/24 17:30 Temperature 98.4 F Pulse Rate 82 84 Respiratory Rate 18 24 Blood Pressure 145/70 H 165/79 H Pulse Oximetry 96 97 Oxygen Delivery Method Room Air Fraction of Inspired Oxygen 12/19/24 17:30 12/19/24 18:00 12/19/24 18:00 Temperature Pulse Rate 78 83 Respiratory Rate 20 Blood Pressure 173/84 H Pulse Oximetry 97 97 Oxygen Delivery Method Fraction of Inspired Oxygen 12/19/24 18:30 12/19/24 18:30 12/19/24 18:39 Temperature Pulse Rate 78 75 Respiratory Rate 26 H 26 H Blood Pressure 206/97 H Pulse Oximetry 98 98 Oxygen Delivery Method Fraction of Inspired Oxygen 12/19/24 18:39 12/19/24 19:03 12/19/24 19:23 Temperature Pulse Rate 77 84 Respiratory Rate 18 29 H Blood Pressure 198/93 H 160/76 H Pulse Oximetry 98 98 Oxygen Delivery Method Room Air Room Air Fraction of Inspired Oxygen 21 12/19/24 19:24 12/19/24 19:30 12/19/24 19:46 Temperature Pulse Rate 87 80 83 Respiratory Rate 24 20 Blood Pressure 161/71 H 161/71 H Pulse Oximetry 98 96 Oxygen Delivery Method Fraction of Inspired Oxygen 12/19/24 20:00 Temperature Pulse Rate 80 Respiratory Rate 26 H Blood Pressure 181/74 H Pulse Oximetry 96 Oxygen Delivery Method Fraction of Inspired Oxygen Medical Decision Making Lab Data 12/19/24 17:25 12/19/24 17:25 Labs: Lab Results 12/19/24 12/19/24 12/19/24 Range/Units 17:18 17:18 17:18 WBC (4.5-11.0) X10^3/uL RBC (4.0-5.2) X10^6/uL Hgb (12.0-16.0) g/dL Hct (36-46) % MCV (80-100) fL MCH (26-34) PG MCHC (30-36) % RDW (11.6-14.8) % Plt Count (150-400) X10^3/uL Neut % (Auto) (50-75) % Lymph % (Auto) (25-40) % [place] % (Auto) (3-14) % Eos % (Auto) (2-4) % Baso % (Auto) (0-2) % Neut # (Auto) (3502-5096) /uL Lymph # (Auto) (0816-9577) /uL [place] # (Auto) (0-900) /uL Eos # (Auto) (0-450) /uL Baso # (Auto) (0-100) /uL PT (9.4-12.5) SECONDS INR (0.9-1.3) D-Dimer (<500) ng/ml Sodium (137-145) mmol/L Potassium (3.4-5.1) mmol/L Chloride (98-107) mmol/L Carbon Dioxide (22-32) mmol/L BUN (7-17) mg/dL Creatinine (0.52-1.04) mg/dL Estimated GFR (>60) mL/min BUN/Creatinine Ratio (6-22) Glucose (80-110) mg/dL Lactate (0.7-2.1) mmol/L Calcium (8.4-10.2) mg/dL Total Bilirubin (0.2-1.3) mg/dL AST (14-36) IU/L ALT (<35) IU/L Alkaline Phosphatase (38-126) U/L Troponin I (0.01-0.034) ng/mL NT-Pro-B Natriuret Pep (<450) pg/mL Total Protein (6.3-8.2) g/dL Albumin (3.5-5.0) g/dL Globulin (1.7-4.1) g/dL Albumin/Globulin Ratio (1.0-2.8) Urine Color Urine Appearance Urine pH (4.5-8.0) Ur Specific [place] (1.000-1.035) Urine Protein (Negative) Urine Glucose (UA) (Negative) g/dL Urine Ketones (NEGATIVE) Urine Occult Blood (Negative) Urine Nitrate (Negative) Urine Bilirubin (NEGATIVE) Urine Urobilinogen (0.2) E.U./dL Ur Leukocyte Esterase (NEGATIVE) Urine RBC (0-5/HPF) Urine WBC (0-5/HPF) Ur Squamous Epith Cells (0-5/HPF) Urine Bacteria (None) Ur Culture Indicated? Vol Urine Centrifuged Chlamy pneumoniae PCR Not detected (Not Detect) Adenovirus (PCR) Not detected (Not Detect) B. pertussis DNA (PCR) Not detected (Not Detect) B.parapertussis DNA PCR Not detected (Not Detecte) Coronavirus OC43 (PCR) Not detected (Not Detect) Coronavirus HKU1 (PCR) Not detected (Not Detect) Coronavirus 229E (PCR) Not detected (Not Detect) SARS-CoV-2 (PCR) Negative Not detected (Negative) Coronavirus NL63 (PCR) Not detected (Not Detect) Human Metapneumovir PCR Detected H (Not Detect) Influenza A (RT-PCR) Flu a negative (NEGATIVE) Influenza Type A (PCR) Not detected (Not Detect) Influenza B (RT-PCR) Flu b negative (NEGATIVE) Influenza Type B (PCR) Not detected (Not Detect) M. pneumoniae (PCR) Not detected (Not Detect) Parainfluenza 1 (PCR) Not detected (Not Detect) Parainfluenza 2 (PCR) Not detected (Not Detect) Parainfluenza 3 (PCR) Not detected (Not Detect) Parainfluenza 4 (PCR) Not detected (Not Detect) RSV (PCR) Negative Not detected (Negative) Entero/Rhino (PCR) Not detected (Not Detect) 12/19/24 12/19/24 Range/Units 17:25 19:21 WBC 5.3 (4.5-11.0) X10^3/uL RBC 4.25 (4.0-5.2) X10^6/uL Hgb 10.4 L (12.0-16.0) g/dL Hct 32.5 L (36-46) % MCV 76.4 L (80-100) fL MCH 24.4 L (26-34) PG MCHC 31.9 (30-36) % RDW 18.1 H (11.6-14.8) % Plt Count 264 (150-400) X10^3/uL Neut % (Auto) 54.3 (50-75) % Lymph % (Auto) 26.7 (25-40) % [place] % (Auto) 12.7 (3-14) % Eos % (Auto) 5.6 H (2-4) % Baso % (Auto) 0.7 (0-2) % Neut # (Auto) 2900 (3113-3026) /uL Lymph # (Auto) 1400 (3178-2727) /uL [place] # (Auto) 700 (0-900) /uL Eos # (Auto) 300 (0-450) /uL Baso # (Auto) 0 (0-100) /uL PT 12.2 (9.4-12.5) SECONDS INR 1.1 (0.9-1.3) D-Dimer 638 H (<500) ng/ml Sodium 138 (137-145) mmol/L Potassium 3.7 (3.4-5.1) mmol/L Chloride 105 (98-107) mmol/L Carbon Dioxide 25 (22-32) mmol/L BUN 16 (7-17) mg/dL Creatinine 0.76 (0.52-1.04) mg/dL Estimated GFR > 60 (>60) mL/min BUN/Creatinine Ratio 21.1 (6-22) Glucose 89 (80-110) mg/dL Lactate 1.3 (0.7-2.1) mmol/L Calcium 8.3 L (8.4-10.2) mg/dL Total Bilirubin 0.4 (0.2-1.3) mg/dL AST 29 (14-36) IU/L ALT 19 (<35) IU/L Alkaline Phosphatase 86 (38-126) U/L Troponin I < 0.012 (0.01-0.034) ng/mL NT-Pro-B Natriuret Pep 851 H (<450) pg/mL Total Protein 6.8 (6.3-8.2) g/dL Albumin 3.8 (3.5-5.0) g/dL Globulin 3.0 (1.7-4.1) g/dL Albumin/Globulin Ratio 1.3 (1.0-2.8) Urine Color Yellow Urine Appearance Clear Urine pH 6.0 (4.5-8.0) Ur Specific [place] 1.010 (1.000-1.035) Urine Protein Negative (Negative) Urine Glucose (UA) Negative (Negative) g/dL Urine Ketones Negative (NEGATIVE) Urine Occult Blood Negative (Negative) Urine Nitrate Negative (Negative) Urine Bilirubin Negative (NEGATIVE) Urine Urobilinogen 0.2 (0.2) E.U./dL Ur Leukocyte Esterase Trace H (NEGATIVE) Urine RBC 0-1/hpf (0-5/HPF) Urine WBC 0-1/hpf (0-5/HPF) Ur Squamous Epith Cells 1-5 /hpf D (0-5/HPF) Urine Bacteria Occasional (0-1) (None) Ur Culture Indicated? Cult not indicated Vol Urine Centrifuged 10ml (spun) Chlamy pneumoniae PCR (Not Detect) Adenovirus (PCR) (Not Detect) B. pertussis DNA (PCR) (Not Detect) B.parapertussis DNA PCR (Not Detecte) Coronavirus OC43 (PCR) (Not Detect) Coronavirus HKU1 (PCR) (Not Detect) Coronavirus 229E (PCR) (Not Detect) SARS-CoV-2 (PCR) (Negative) Coronavirus NL63 (PCR) (Not Detect) Human Metapneumovir PCR (Not Detect) Influenza A (RT-PCR) (NEGATIVE) Influenza Type A (PCR) (Not Detect) Influenza B (RT-PCR) (NEGATIVE) Influenza Type B (PCR) (Not Detect) M. pneumoniae (PCR) (Not Detect) Parainfluenza 1 (PCR) (Not Detect) Parainfluenza 2 (PCR) (Not Detect) Parainfluenza 3 (PCR) (Not Detect) Parainfluenza 4 (PCR) (Not Detect) RSV (PCR) (Negative) Entero/Rhino (PCR) (Not Detect) MDM Narrative Medical decision making narrative: CC: Upper respiratory symptoms for a month Complicating co-morbidities: Dementia, hypertension, hyperlipidemia, no history of asthma or COPD Data collected from: patient, son and [id number] Medical records reviewed: No access to primary care records is, orthopedic records regarding right knee surgery and hernia repair reviewed Differential considered: Bacterial pneumonia, viral pneumonia, pulmonary embolism, COPD with significant exacerbation, RSV, acute coronary syndrome, congestive heart failure Exam documented above, pertinent findings include: Significant cough, audible wheeze minimal rhonchi, she is perfusing, regular rhythm, abdomen is benign Lab Test results independently reviewed as above. Pertinent findings: CBC shows a normal white blood cell count 5.3. Mild anemia at 10.4 and 32.5 Chemistries are reassuring with normal creatinine, normal liver studies Troponin is undetectable BNP is minimally elevated at 851 Independently reviewed EKG: Sinus rhythm at a rate of 78, no acute ischemic changes Imaging studies independently reviewed: Chest x-ray shows developing patchy infiltrates in the right lung no pleural effusions. Radiology interpretation suggests no acute findings Treatments: Saline, Solu-Medrol, DuoNeb, magnesium sulfate, Cozaar Re-evaluations: Patient is significantly improved. Requiring no oxygen, cough is controlled, she is afebrile alert and appropriate Discussion: 84-year-old woman with initial upper respiratory infection now with secondary right-sided pneumonia developing without signs of sepsis or severe respiratory distress. She is not requiring oxygen, she is able to eat and drink, she has stable living environment in his able to go back to the emergency department if symptoms should worsen. She does not meet criteria for admission at this time. We will have her complete a 5 day prednisone taper. Did discuss with her son and [id number] the psychiatric side effects sometimes seen with dementia and prednisone. Low dose and short course waiting used. She currently has a prescription for Augmentin has taken 2 doses to this we will add doxycycline. She will be given an inhaler with instructions for use and reasons to return should she get worse. Discharge Plan Departure Patient Disposition: Home Clinical Impression: Bacterial pneumonia, Wheeze Instructions: DI for Pneumonia -- Adult Activity Restrictions/Additional Instructions: Thank you for coming in today After your cold, you are developing a bacterial pneumonia in the right side of your lung. The Augmentin that you were prescribed yesterday is a good start and needs to be continued. I am also going to give you a prescription, a 2nd antibiotic, doxycycline to add to this. With your wheezing I am going to suggest 5 additional days of prednisone, if you feel that it is making you act funny, become too confused or creating other problems you can stop this. You may find that it helps significantly with the wheezing and as a side effect your joints do not hurt quite so much for a few days I have also given you a spacer with albuterol inhaler. I would recommend 2 puffs of albuterol every 4-6 hours as needed for wheezing or cough If you find that you are getting worse or develop any new symptoms, please feel free to return to the emergency department for further evaluation. Prescriptions: New doxycycline hyclate 100 mg capsule 100 mg PO BID Qty: 20 0RF prednisone 20 mg tablet 20 mg PO DAILY Qty: 5 0RF No Action atorvastatin 40 mg Tablet 40 mg PO DAILY donepezil 10 mg Tablet 10 mg PO BEDTIME famotidine 20 mg Tablet 20 mg PO BEDTIME candesartan 16 mg Tablet 16 mg PO DAILY omeprazole 20 mg Capsule,Delayed Release(Dr/Ec) 20 mg PO DAILY hydrochlorothiazide 25 mg Tablet 12.5 mg PO DAILY Excedrin Extra Strength 250-250-65 mg Tablet 1 tab PO Q4-6H PRN (Reason: Headache) memantine 10 mg Tablet 10 mg PO QPM diclofenac sodium 1 % Gel 4 g TOPICAL QID oxycodone 5 mg Tablet 5 mg PO Q4H PRN (Reason: Pain, Moderate (4-6)) Qty: 40 0RF ondansetron 4 mg tablet,disintegrating 4 mg PO Q6H PRN (Reason: nausea and vomiting) Qty: 10 0RF Referrals: Erica Vaughn PA-C [Primary Care Provider] - Stand Alone Forms: Patient Portal/API/Survey
[2024-12-19 18:14] LABS: Influenza A - CEPHEID Flu A NEGATIVE (NEGATIVE); Influenza B - CEPHEID Flu B NEGATIVE (NEGATIVE); Respiratory Syncytial Virus Negative (Negative)
[2024-12-19 18:19] LABS: COVID-19 CEPHEID 4-PLEX PCR Negative (Negative)
[2024-12-19 18:47] LABS: D Dimer 638 ng/ml (<500)
[2024-12-19] MEDS: methylPREDNISolone 125 MG/2 ML VIAL IV (18:52)
[2024-12-19] MEDS: MAGNESIUM SULFATE 2 GM/50 ML PIGGYBACK IV (18:53)
[2024-12-19] MEDS: ALBUTEROL/IPRATROPIUM 3 ML AMPUL INH (18:59)
[2024-12-19 19:32] LABS: Appearance Urine UA CLEAR; Bilirubin Urine UA NEGATIVE (NEGATIVE); Color Urine UA YELLOW; Glucose Urine UA NEGATIVE (Negative); Ketones Urine UA NEGATIVE (NEGATIVE); Leukocyte Esterase Urine UA TRACE (NEGATIVE); Nitrite Urine UA NEGATIVE (Negative); Occult Blood Urine UA NEGATIVE (Negative); Protein Urine UA NEGATIVE (Negative); Urobilinogen Urine UA 0.2 E.U./dL (0.2)
[2024-12-19] MEDS: SODIUM CHLORIDE 0.9% 1,000 ML 1000 ML IV (19:36)
[2024-12-19 19:37] LABS: Adenovirus Not Detected (Not Detect); B. parapertussis Not Detected (Not Detecte); Bordetella pertussis Not Detected (Not Detect); Chlamydophila pneumoniae Not Detected (Not Detect); Coronavirus 229E Not Detected (Not Detect); Coronavirus HKU1 Not Detected (Not Detect); Coronavirus NL 63 Not Detected (Not Detect); Coronavirus OC43 Not Detected (Not Detect); Human Metapneumovirus Detected (Not Detect); Human Rhinovirus/Enterovirus Not Detected (Not Detect); Influenza A Not Detected (Not Detect); Influenza B Not Detected (Not Detect); Mycoplasma pneumoniae Not Detected (Not Detect); Parainfluenza Virus 1 Not Detected (Not Detect); Parainfluenza Virus 2 Not Detected (Not Detect); Parainfluenza Virus 3 Not Detected (Not Detect); Parainfluenza Virus 4 Not Detected (Not Detect); Respiratory Syncytial Virus Not Detected (Not Detect); SARS- CoV-2 Not Detected (Not Detecte)
[2024-12-19 19:38] LABS: RBC Urine 0-1/HPF (0-5/HPF); Urine Volume 10mL (spun); WBC Urine 0-1/HPF (0-5/HPF)
[2024-12-19 19:39] LABS: Bacteria Urine Occasional (0-1); Culture Indicated Urine Cult Not Indicated; Squamous Epithelial Cell Urine 1-5 /HPF (0-5/HPF)
[2024-12-19] MEDS: LOSARTAN 50 MG TABLET 100 MG PO (19:46)
[2024-12-19] MEDS: ALBUTEROL HFA PREPACK 1 BOX MISC (22:24)
== END 2024-12-19 22:40 | disposition home or self-care (01) ==
PROVIDERS: Family Medicine; Emergency Provider Emergency Medicine; PCP Physician Assistant
DX: J18.9 Pneumonia, unspecified organism (principal); R06.2 Wheezing; F03.90 Unspecified dementia, unspecified severity, without behavioral disturbance, psychotic disturbance, mood disturbance, and anxiety; E78.5 Hyperlipidemia, unspecified; I10 Essential (primary) hypertension
CPT/HCPCS: 0241U; 36415; 71045; 80053; 81001; 83605; 83880; 84484; 85025; 85379; 85610; 87633; 93005; 93010; 96361; 96365; 96375; 99284; J2919; J3475

== ENCOUNTER 2024-12-21 09:45 | Inpatient (IN) | payer MEDICARE, OTHER, SELFPAY ==
[2021-03-05 13:11] VITALS: BMI 26.5
[2024-12-21] VITALS (25 sets, daily range): BP systolic 151–201; BP diastolic 70–98; PULSE 77–108; RESP 16–29; TEMP 36.5–37.1; O2SAT 90–100; BMI 26.4
--- NOTE | 2024-12-21 10:02 | DI.RAD.S_ITS ---
PROCEDURE: XR CHEST 1V INDICATIONS: Shortness of breath TECHNIQUE: One view of the chest was acquired. COMPARISON: [facility], CR, XR CHEST 1V, 12/19/2024, 17:15. FINDINGS: Surgical changes and devices: None. Lungs and pleura: Mild pulmonary vascular congestion is seen. No definite focal infiltrate. No pleural effusions or pneumothorax. Mediastinum: Mediastinal contours appear normal. Heart size is enlarged. Bones and chest wall: No suspicious bony lesions. Overlying soft tissues appear unremarkable. IMPRESSION: Mild pulmonary vascular congestion. No focal infiltrate, pleural effusion or pneumothorax. Dictated by: Enrico Noble M.D. on 12/21/2024 at 10:46 Approved by: Enrico Noble M.D. on 12/21/2024 at 10:46
--- NOTE | 2024-12-21 10:10 | EKG_ITS ---
[address] [address] Test Date: 2024-12-21 Pat Name: Sehila Smith Department: Room: Gender: Female [employer] Monitor: NATACHA : 1940 Requested By: Order Number: [id number] Reading MD: Hung Small MD Measurements Intervals [place] Rate: 83 P: 45 [place]: 144 QRS: -5 QRSD: 86 T: 16 QT: 406 QTc: 477 Interpretive Statements Normal sinus rhythm Minimal voltage criteria for LVH, may be normal variant ( R in aVL ) Inferior infarct , age undetermined Electronically Signed On 12-21-2024 15:23:57 PDT by Hung Small MD
[2024-12-21 10:12] LABS: Add Manual Diff / Slide Review NO; Basophils Absolute Auto 100 /uL (0-100); Basophils Percent Auto 0.6 % (0-2); Eosinophils Absolute Auto 0 /uL (0-450); Eosinophils Percent Auto 0.4 % (2-4); Hematocrit 30.5 % (36-46); Hemoglobin 9.7 g/dL (12.0-16.0); Lymphocytes Absolute Auto 1500 /uL (1100-4500); Lymphocytes Percent Auto 12.2 % (25-40); Mean Corpuscular HGB Conc 31.8 % (30-36); Mean Corpuscular Hemoglobin 24.1 PG (26-34); Mean Corpuscular Volume 75.6 fL (80-100); Monocytes Absolute Auto 900 /uL (0-900); Monocytes Percent Auto 6.9 % (3-14); Neutrophils Absolute Auto 10000 /uL (1500-7000); Neutrophils Percent Auto 79.9 % (50-75); Platelet Count 317 X10^3/uL (150-400); Red Blood Cell Count 4.03 X10^6/uL (4.0-5.2); Red Cell Distribution Width 17.9 % (11.6-14.8); White Blood Cell Count 12.5 X10^3/uL (4.5-11.0)
[2024-12-21 10:19] LABS: Prothrombin Time 11.4 SECONDS (9.4-12.5)
[2024-12-21 10:22] LABS: Lactate (Lactic Acid) 2.8 mmol/L (0.7-2.1)
[2024-12-21 10:23] LABS: Alanine Aminotransferase 27 IU/L (<35); Albumin 4.1 g/dL (3.5-5.0); Albumin Globulin Ratio 1.3 (1.0-2.8); Alkaline Phosphatase 86 U/L (38-126); Aspartate Aminotransferase 41 IU/L (14-36); BUN Creatinine Ratio 30.2 (6-22); Bilirubin Total 0.6 mg/dL (0.2-1.3); Blood Urea Nitrogen 19 mg/dL (7-17); Calcium 8.6 mg/dL (8.4-10.2); Carbon Dioxide 23 mmol/L (22-32); Chloride 107 mmol/L (98-107); Estimated Glomerular Filt Rate > 60 mL/min (>60); Globulin 3.1 g/dL (1.7-4.1); Glucose 103 mg/dL (80-110); HEMOLYSIS 22 (0-50); Potassium 3.8 mmol/L (3.4-5.1); Sodium 142 mmol/L (137-145); Total Protein 7.2 g/dL (6.3-8.2)
[2024-12-21] MEDS: ALBUTEROL/IPRATROPIUM 3 ML AMPUL INH (10:26)
[2024-12-21 10:35] LABS: NT-proBNP (BNP-Adult 18+) 770 pg/mL (<450); Troponin I 0.013 ng/mL (0.01-0.034)
[2024-12-21 11:44] LABS: Reflexed Lactate in 2 Hours Y
[2024-12-21 12:19] LABS: Lactate 2HR (Lactic Acid Rflx) 3.1 mmol/L (0.7-2.1)
--- NOTE | 2024-12-21 13:42 | ED_ITS ---
HPI - SOB/Dyspnea General Chief Complaint: Shortness of Breath/Dyspnea Stated Complaint: here T-1 pneumonia getting worse Time Seen by Provider: 12/21/24 13:33 Source: patient, RN notes reviewed and old records reviewed Mode of arrival: Ambulatory Limitations: no limitations History of Present Illness HPI Narrative: 84-year-old female with dementia, hypertension, dyslipidemia, reflux recently diagnosed with pneumonia on Friday states she was getting worse with increased shortness of breath and cough. Patient was seen here in the department tested positive for human metapneumovirus has been on Augmentin had on take doxycycline as well as prednisone added on. Patient has not had any fevers, no chest pain, shortness of breath with wheezing. Son states the albuterol with spacer has not been very helpful. She has been having a lot of cough has been nonproductive but sometimes keeps her up. No nausea or vomiting, no issues with bowel movements or urination no new swelling in extremities. Patient is a still taking Augmentin, doxycycline and started her prednisone yesterday. Has a history of tobacco use from age 17 to approximately 61, occasional alcohol, no recreational drugs. She did have a subdural hematoma and required a liz hole in the past. No reported drug allergies. She lives with her son who also helps manage her medications. Related Data Home Medications Medication Instructions Recorded Confirmed [id number] 250 1 tab PO Q4-6H PRN Headache 02/27/21 05/17/21 mg-250 mg-65 mg tablet (Excedrin Extra Strength) atorvastatin 40 mg tablet 40 mg PO DAILY 02/27/21 05/17/21 candesartan 16 mg tablet 16 mg PO DAILY 02/27/21 05/17/21 diclofenac sodium 1 % topical gel 4 g topical QID 02/27/21 05/17/21 donepezil 10 mg tablet 10 mg PO BEDTIME 02/27/21 05/17/21 famotidine 20 mg tablet 20 mg PO BEDTIME 02/27/21 05/17/21 hydrochlorothiazide 25 mg tablet 12.5 mg PO DAILY 02/27/21 05/17/21 memantine 10 mg tablet 10 mg PO QPM 02/27/21 05/17/21 omeprazole 20 mg capsule,delayed 20 mg PO DAILY 02/27/21 05/17/21 release Previous Rx's Medication Instructions Recorded oxycodone 5 mg tablet 5 mg PO Q4H PRN Pain, Moderate 03/06/21 (4-6) #40 tabs ondansetron 4 mg disintegrating 4 mg PO Q6H PRN nausea and 08/23/24 tablet vomiting #10 tabs doxycycline hyclate 100 mg capsule 100 mg PO BID #20 caps 12/19/24 prednisone 20 mg tablet 20 mg PO DAILY #5 tabs 12/19/24 Allergies Allergy/AdvReac Type Severity Reaction Status Date / Time No Known Drug Allergies Allergy Verified 12/21/24 10:03 Review of Systems Review of Systems ROS Unobtainable: All systems reviewed & are unremarkable except as noted in HPI and below Patient History Medical History DDD (degenerative disc disease) Hypothyroidism Osteoarthritis GERD (gastroesophageal reflux disease) HLD (hyperlipidemia) HTN (hypertension) Aneurysm Dementia Hypertension, essential Surgical History History of arthroplasty of right knee (03/05/21) History of total right hip arthroplasty Hx of tonsillectomy History of hysterectomy History of inguinal hernia repair Social History household members: family and children Smoking Status: Unknown if ever smoked alcohol intake: current Smoking Status: Unknown if ever smoked alcohol intake frequency: a few times a month Exam Narrative Exam Narrative: GEN: well nourished, elderly female, alert and oriented, patient appears to be in mild distress. HEENT: Atraumatic, pupils are equal round reactive to light, extraocular movements are intact, nares are clear, TMs are clear with no fluid, there is no conjunctival pallor. Throat is clear without any exudates, erythema, tonsillar enlargement or uvular deviation HEART: Regular rate and rhythm without murmur, clicks, rubs. Pulses are equal in upper and lower extremities LUNGS:Lungs patient has a expiratory wheezes throughout bilaterally, no tachypnea accessory muscle use, no rales, crackles, chest moves symmetrically. ABD:bowel sounds normal, soft, non-tender, no guarding, rebound, rigidity, no masses noted, no hepatosplenomegaly :No CVA tenderness MSCL: Non-tender, no muscle atrophy, muscles strength 5/5 upper and lower extremities, full range of motion, normal gait NEURO:CN 2-12 intact, sensation normal. Initial Vital Signs Initial Vital Signs: Vital Signs Temperature 98.4 F 12/21/24 09:47 Pulse Rate 91 H 12/21/24 09:47 Respiratory Rate 19 12/21/24 09:47 Blood Pressure 192/84 H 12/21/24 09:47 Pulse Oximetry 99 12/21/24 09:47 Oxygen Delivery Method Room Air 12/21/24 09:47 Course Orders Ordered: ED Orders 12/21/24 09:59 Complete Blood Count AUTO DIFF Stat Comprehensive Metabolic Panel Stat Lactate (Lactic Acid) Stat NT-proBNP (BNP-Adult 18+) Stat Prothrombin Time INR Stat Troponin I Stat 12/21/24 10:02 XR chest 1V Stat EKG-12 Lead Stat 12/21/24 14:45 Lactate (Lactic Acid) Stat 12/21/24 16:22 CT angio chest PE protocol Stat 12/21/24 16:25 Trop I [Troponin I] Stat Acetaminophen (Acetaminophen 325 Mg Tablet) 650 mg PO Q6H PRN PRN Reason: Fever/Mild Pain (1-3) Enoxaparin Sodium (Enoxaparin 40 Mg/0.4 Ml Syringe) 40 mg SUBCUT DAILY LEONEL Ceftriaxone Sodium 1,000 mg/ (Sodium Chloride) 100 mls @ 200 mls/hr IV Q24H LEONEL Doxycycline Hyclate 100 mg/ (Sodium Chloride) 100 mls @ 100 mls/hr IV Q12H LEONEL Naloxone HCl (Naloxone 0.4 Mg/Ml Vial) 0.2 mg IV Q2MIN PRN PRN Reason: Opiate Reversal Ondansetron HCl (Ondansetron 4 Mg/2 Ml Inj) 4 mg IV Q8HR PRN PRN Reason: Nausea And Vomiting Discontinued Medications Albuterol (Albuterol 2.5 Mg/3 Ml Neb (Adult)) 2.5 mg INH NOW ONE Stop: 12/21/24 13:56 Last Admin: 12/21/24 14:14 Dose: 2.5 mg Documented By: KAVYA Albuterol/Ipratropium (Albuterol/Ipratropium 3 Ml Ampul) 3 ml INH NOW ONE Stop: 12/21/24 10:24 Last Admin: 12/21/24 10:26 Dose: 3 ml Documented By: OLIVIA Sodium Chloride (Normal Saline 0.9%) 500 mls @ 1,000 mls/hr IV BOLUS ONE Stop: 12/21/24 14:17 Last Infusion: 12/21/24 14:46 Dose: Infused Documented By: Admin: 12/21/24 13:55 Dose: 1,000 mls/hr Documented By: RACHEL Magnesium Sulfate (Magnesium Sulfate) 2 gm in 50 mls @ 150 mls/hr IV NOW ONE Stop: 12/21/24 14:45 Last Infusion: 12/21/24 15:08 Dose: Infused Documented By: KYLAH Co-signed By: RACHEL Admin: 12/21/24 14:39 Dose: 150 mls/hr Documented By: RACHEL Co-signed By: CARLOS Methylprednisolone (Methylprednisolone 125 Mg/2 Ml Vial) 125 mg IV NOW ONE Stop: 12/21/24 14:27 Last Admin: 12/21/24 14:39 Dose: 125 mg Documented By: RACHEL Vital Signs Vital signs: Vital Signs - 8 hr 12/21/24 11:00 12/21/24 11:01 12/21/24 11:01 Pulse Rate 88 87 Respiratory Rate 27 H 26 H Blood Pressure 182/81 H Pulse Oximetry 95 97 Oxygen Delivery Method 12/21/24 11:30 12/21/24 11:30 12/21/24 12:00 Pulse Rate 81 Respiratory Rate 18 Blood Pressure 173/81 H 184/88 H Pulse Oximetry 95 Oxygen Delivery Method 12/21/24 12:00 12/21/24 12:30 12/21/24 12:30 Pulse Rate 82 80 Respiratory Rate 22 20 Blood Pressure 164/76 H Pulse Oximetry 96 98 Oxygen Delivery Method 12/21/24 13:00 12/21/24 13:00 12/21/24 13:23 Pulse Rate 79 84 Respiratory Rate 16 24 Blood Pressure 151/70 H Pulse Oximetry 97 Oxygen Delivery Method 12/21/24 13:23 12/21/24 13:30 12/21/24 13:30 Pulse Rate 81 Respiratory Rate 19 Blood Pressure 197/93 H 195/84 H Pulse Oximetry Oxygen Delivery Method 12/21/24 14:00 12/21/24 14:00 12/21/24 14:14 Pulse Rate 79 80 Respiratory Rate 18 18 Blood Pressure 199/85 H Pulse Oximetry 97 98 Oxygen Delivery Method Room Air 12/21/24 14:30 12/21/24 14:31 12/21/24 14:31 Pulse Rate 84 84 Respiratory Rate 27 H 29 H Blood Pressure 201/81 H Pulse Oximetry 100 100 Oxygen Delivery Method 12/21/24 15:00 12/21/24 15:01 12/21/24 15:01 Pulse Rate 91 H 90 Respiratory Rate 25 H 24 Blood Pressure 175/73 H Pulse Oximetry 94 94 Oxygen Delivery Method 12/21/24 15:29 12/21/24 16:01 12/21/24 16:02 Pulse Rate 108 H 87 Respiratory Rate 26 H Blood Pressure 177/79 H Pulse Oximetry 90 L 92 Oxygen Delivery Method 12/21/24 16:02 Pulse Rate 84 Respiratory Rate 22 Blood Pressure Pulse Oximetry 95 Oxygen Delivery Method MDM - SOB/Dyspnea Lab Data 12/21/24 09:59 12/21/24 09:59 Labs: Lab Results 12/21/24 12/21/24 12/21/24 Range/Units 09:59 12:00 14:45 WBC 12.5 H D (4.5-11.0) X10^3/uL RBC 4.03 (4.0-5.2) X10^6/uL Hgb 9.7 L (12.0-16.0) g/dL Hct 30.5 L (36-46) % MCV 75.6 L (80-100) fL MCH 24.1 L (26-34) PG MCHC 31.8 (30-36) % RDW 17.9 H (11.6-14.8) % Plt Count 317 (150-400) X10^3/uL Neut % (Auto) 79.9 H D (50-75) % Lymph % (Auto) 12.2 L (25-40) % [place] % (Auto) 6.9 (3-14) % Eos % (Auto) 0.4 L (2-4) % Baso % (Auto) 0.6 (0-2) % Neut # (Auto) 04612 H (9130-4347) /uL Lymph # (Auto) 1500 (7997-9642) /uL [place] # (Auto) 900 (0-900) /uL Eos # (Auto) 0 (0-450) /uL Baso # (Auto) 100 (0-100) /uL PT 11.4 (9.4-12.5) SECONDS INR 1.0 (0.9-1.3) Sodium 142 (137-145) mmol/L Potassium 3.8 (3.4-5.1) mmol/L Chloride 107 (98-107) mmol/L Carbon Dioxide 23 (22-32) mmol/L BUN 19 H (7-17) mg/dL Creatinine 0.63 (0.52-1.04) mg/dL Estimated GFR > 60 (>60) mL/min BUN/Creatinine Ratio 30.2 H (6-22) Glucose 103 (80-110) mg/dL Lactate 2.8 H 3.1 H 2.8 H (0.7-2.1) mmol/L Calcium 8.6 (8.4-10.2) mg/dL Total Bilirubin 0.6 (0.2-1.3) mg/dL AST 41 H (14-36) IU/L ALT 27 (<35) IU/L Alkaline Phosphatase 86 (38-126) U/L Troponin I 0.013 (0.01-0.034) ng/mL NT-Pro-B Natriuret Pep 770 H (<450) pg/mL Total Protein 7.2 (6.3-8.2) g/dL Albumin 4.1 (3.5-5.0) g/dL Globulin 3.1 (1.7-4.1) g/dL Albumin/Globulin Ratio 1.3 (1.0-2.8) 12/21/24 12/21/24 Range/Units 16:25 16:40 WBC (4.5-11.0) X10^3/uL RBC (4.0-5.2) X10^6/uL Hgb (12.0-16.0) g/dL Hct (36-46) % MCV (80-100) fL MCH (26-34) PG MCHC (30-36) % RDW (11.6-14.8) % Plt Count (150-400) X10^3/uL Neut % (Auto) (50-75) % Lymph % (Auto) (25-40) % [place] % (Auto) (3-14) % Eos % (Auto) (2-4) % Baso % (Auto) (0-2) % Neut # (Auto) (2978-2660) /uL Lymph # (Auto) (7127-4351) /uL [place] # (Auto) (0-900) /uL Eos # (Auto) (0-450) /uL Baso # (Auto) (0-100) /uL PT (9.4-12.5) SECONDS INR (0.9-1.3) Sodium (137-145) mmol/L Potassium (3.4-5.1) mmol/L Chloride (98-107) mmol/L Carbon Dioxide (22-32) mmol/L BUN (7-17) mg/dL Creatinine (0.52-1.04) mg/dL Estimated GFR (>60) mL/min BUN/Creatinine Ratio (6-22) Glucose (80-110) mg/dL Lactate 4.0 H (0.7-2.1) mmol/L Calcium (8.4-10.2) mg/dL Total Bilirubin (0.2-1.3) mg/dL AST (14-36) IU/L ALT (<35) IU/L Alkaline Phosphatase (38-126) U/L Troponin I < 0.012 (0.01-0.034) ng/mL NT-Pro-B Natriuret Pep (<450) pg/mL Total Protein (6.3-8.2) g/dL Albumin (3.5-5.0) g/dL Globulin (1.7-4.1) g/dL Albumin/Globulin Ratio (1.0-2.8) ECG Data Attestation: I personally reviewed and interpreted this ECG as follows: Prior ECG tracings: available for review Interpretation: EKG shows sinus rhythm rate 83, [place] 144 QRS 86 QTC of 477, no acute ST elevation. Patient was prior from 12/19/2024 which shows no acute ST changes. MDM Narrative Medical decision making narrative: Labs show white count of 12.5 is trending upwards from 5 on the , hemoglobin is 9.7 was 10.4 last comparison was 13 in August of 2024 patient has a microcytic anemia with a platelets of 317. INR is 1, electrolytes are appropriate BUN 19 creatinine 0.63 lactate 2.8 with a repeat of 3.1, total bilirubin is normal but AST is 41 ALT alk-phos are normal, troponin 0.013, BNP 770. Patient had a BNP of 851 on the . Repeat troponins less than 0.012 Patient tested positive for human metapneumovirus on 12/19/2024 with a full respiratory panel. Chest x-ray shows mild pulmonary vascular congestion no focal infiltrate, pleural effusion or pneumothorax. EKG shows sinus rhythm rate 83, [place] 144 QRS 86 QTC of 477, no acute ST elevation. No acute changes from prior 2 days ago. CTA no pulmonary embolism, thoracic aortic aneurysm or gross dissection, masslike consolidation anterior aspect left upper lobe 1.4 x 1.2 cm, posterior medial aspect of left lower lobe in your left lung base. Additional ill-defined airspace opacities also seen left upper lobe and right lower lobe. Findings may represent bilateral multilobular infiltrates. No pleural effusion or pneumothorax. Mild cardiomegaly, no pericardial effusion, no gross mediastinal hilar lymphadenopathy. Two-vessel coronary artery atherosclerotic calcifications [id number] size hiatal hernia. Patient had DuoNeb here in the department. Was wheezy prior still has some wheeze afterwards was given additional albuterol, Solu-Medrol and magnesium. Patient does not normally need nebs but likely has some baseline lung damage patient use tobacco for approximately 50-60 years. She was never required inhalers until she was recently ill. She has not been hypoxic vitals have otherwise been appropriate. Lactate did trend upwards on repeat this was prior to any fluids. Discussed with son observation versus discharge. We will recheck lactate after fluids give some additional magnesium re-evaluate after 2nd neb. Patient's lactate improved but back at prior, she was little bit more tachycardic continues to be tachypneic O2 sat drops to 90%. Patient's lactate has fluctuated but not been normal. Spoke with Dr. Johnson hospitalist for admission and who asked for CT angio and repeat troponin. He would accepts for observation if negative. Spoke with Dr. Johnson regarding admission for recent metapneumovirus infection, possible bronchopneumonia patient has possibly some baseline COPD but has not ever needed inhaler she was wheezy on exam but drops her O2 sats down to 90%. Updated him on repeat troponin which is normal as well as CTA findings. He asked that we start patient with Rocephin azithromycin. Discussed she has been on doxy and Augmentin up to this point as well as oral prednisone. Discharge Plan Departure Patient Disposition: Admitted As Inpatient Clinical Impression: Bilateral pneumonia, Sepsis Admit Date/Time: 12/21/24 17:29 Admit Provider: Devan Johnson
[2024-12-21] MEDS: SODIUM CHLORIDE 0.9% 500 ML 1000 ML IV (13:55)
[2024-12-21] MEDS: ALBUTEROL 2.5 MG/3 ML NEB (ADULT) INH (14:14)
[2024-12-21] MEDS: MAGNESIUM SULFATE 2 GM/50 ML PIGGYBACK IV (14:39)
[2024-12-21] MEDS: methylPREDNISolone 125 MG/2 ML VIAL IV (14:39)
[2024-12-21 15:11] LABS: Lactate (Lactic Acid) 2.8 mmol/L (0.7-2.1)
--- NOTE | 2024-12-21 16:22 | DI.CT.S_ITS ---
PROCEDURE: CT ANGIO CHEST PE PROTOCOL INDICATIONS: wheeze TECHNIQUE: After the administration of intravenous contrast, 2 mm thick sections acquired from the pulmonary apices to the posterior costophrenic angles. 3-dimensional maximum intensity projection (MIP) coronal and sagittal reformats were then acquired through the thorax. For radiation dose reduction, the following was used: automated exposure control, adjustment of mA and/or kV according to patient size. COMPARISON: None. FINDINGS: Image quality: Diagnostic. Pulmonary arteries: Pulmonary arteries are normal in size, and demonstrate no intraluminal filling defects to suggest central pulmonary embolism. Lower Neck: No enlarged lymph nodes. Thyroid: No thyroid nodules which require sonographic follow up, per consensus guidelines. Axillae: No enlarged lymph nodes. Chest Wall: Unremarkable. Bones: No aggressive appearing intraosseous lesions. Lungs and Pleura: No pneumothorax or pleural effusions. Biapical scarring is seen. Ill-defined patchy airspace opacities are noted in left lingular segment and posterior aspect of right upper lobe superior segment. Underlying masslike consolidation in anterior aspect of left upper lobe is seen and measures 1.4 x 1.2 cm in size series 5, image 114. Ill-defined airspace opacity in posterior medial aspect of left lower lobe near left lung base is also seen series 5, image 249. Heart: Heart size is mildly enlarged. No pericardial effusion. Thoracic Vessels: No aortic aneurysm. Mediastinum and Debra: No enlarged lymph nodes. Esophagus: No wall thickening. Small to moderate sized hiatal hernia. Upper Abdomen: Visualized upper abdomen solid organs and bowel loops appear normal. IMPRESSION: 1. No pulmonary embolus. No thoracic aortic aneurysm or gross dissection. 2. Masslike consolidation seen in anterior aspect of left upper lobe and posterior medial aspect of left lower lobe near left lung base. Additional ill-defined airspace opacities also seen in left upper lobe and right lower lobe. Finding may represent bilateral multilobar infiltrates. Follow-up until resolution is recommended to rule out underlying neoplastic process. No pleural effusion or pneumothorax. 3. Mild cardiomegaly, no pericardial effusion. No gross mediastinal or hilar lymphadenopathy. 2 vessel coronary artery atherosclerotic calcifications. Small to moderate size hiatal hernia. Dictated by: Enrico Noble M.D. on 12/21/2024 at 17:07 Approved by: Enrico Noble M.D. on 12/21/2024 at 17:12
[2024-12-21 16:27] LABS: Reflexed Lactate in 2 Hours Y
[2024-12-21 16:53] LABS: Troponin I < 0.012 ng/mL (0.01-0.034)
--- NOTE | 2024-12-21 18:41 | P.HP_ITS ---
History of Present Illness History of Present Illness Date Patient Seen: 12/21/24 Time Patient Seen: 18:41 Chief complaint: here T-1 pneumonia getting worse Narrative: 84 F with PMH of HTN, HLD, dementia who presented to the ER 2 days ago. She was diagnosed with human metapneumovirus and possible bacterial pneumonia and was discharged on Augmentin and doxycycline as well as prednisone. Patient denies any fever, chest pain, shortness and breath at rest or wheezing. But she has been more short of breath, with continued bad cough over the last couple of days. She has also tried albuterol which has not been very helpful for her. She denies any nausea, vomiting, abdominal pain, rash, lower extremity edema, orthopnea. She was a previous smoker. She lives with her son in [place]. In the emergency room, the patient was mildly hypertensive, briefly tachycardic, but not febrile. Her oxygen saturation was normal on room air, but she was quite tachypneic into the 30s. WBC was elevated at 12.5, hemoglobin was down slightly to 9.7 from previously just above 10. MCV is low at 75.6. Chemistry panel was largely unremarkable except for mildly elevated lactate. Troponins were negative. ProBNP was slightly elevated at 770. Chest x-ray showed a mild pulmonary vascular congestion. Given her tachypnea and tachycardia that were present CT angiogram was performed to rule out PE which was negative per PE but did show a masslike consolidation in the left lower lobe. Her port score showed a class 4 risk for pneumonia, she was admitted for further management after failing outpatient antibiotic therapy for pneumonia. [facility] Medical History DDD (degenerative disc disease) Hypothyroidism Osteoarthritis GERD (gastroesophageal reflux disease) HLD (hyperlipidemia) HTN (hypertension) Aneurysm Dementia Hypertension, essential Surgical History History of arthroplasty of right knee (03/05/21) History of total right hip arthroplasty Hx of tonsillectomy History of hysterectomy History of inguinal hernia repair Social History household members: family and children Smoking Status: Unknown if ever smoked alcohol intake: current Meds Home Medications and Allergies Home Medications Medication Instructions Recorded Confirmed Type [id number] 250 1 tab PO Q4-6H PRN Headache 02/27/21 05/17/21 History mg-250 mg-65 mg tablet (Excedrin Extra Strength) atorvastatin 40 mg tablet 40 mg PO DAILY 02/27/21 05/17/21 History candesartan 16 mg tablet 16 mg PO DAILY 02/27/21 05/17/21 History diclofenac sodium 1 % topical gel 4 g topical QID 02/27/21 05/17/21 History donepezil 10 mg tablet 10 mg PO BEDTIME 02/27/21 05/17/21 History famotidine 20 mg tablet 20 mg PO BEDTIME 02/27/21 05/17/21 History hydrochlorothiazide 25 mg tablet 12.5 mg PO DAILY 02/27/21 05/17/21 History memantine 10 mg tablet 10 mg PO QPM 02/27/21 05/17/21 History omeprazole 20 mg capsule,delayed 20 mg PO DAILY 02/27/21 05/17/21 History release oxycodone 5 mg tablet 5 mg PO Q4H PRN Pain, Moderate 03/06/21 05/17/21 Rx (4-6) #40 tabs ondansetron 4 mg disintegrating 4 mg PO Q6H PRN nausea and 08/23/24 Rx tablet vomiting #10 tabs doxycycline hyclate 100 mg capsule 100 mg PO BID #20 caps 12/19/24 Rx prednisone 20 mg tablet 20 mg PO DAILY #5 tabs 12/19/24 Rx Allergies Allergy/AdvReac Type Severity Reaction Status Date / Time No Known Drug Allergies Allergy Verified 12/21/24 10:03 Review of Systems Review of Systems Narrative: All other systems reviewed with the patient and are negative unless otherwise stated. Exam Vital Signs (past 8 hours): - 12/21/24 11:00 12/21/24 11:01 12/21/24 11:01 Pulse Rate 88 87 Respiratory Rate 27 H 26 H Blood Pressure 182/81 H Pulse Oximetry 95 97 Oxygen Delivery Method 12/21/24 11:30 12/21/24 11:30 12/21/24 12:00 Pulse Rate 81 Respiratory Rate 18 Blood Pressure 173/81 H 184/88 H Pulse Oximetry 95 Oxygen Delivery Method 12/21/24 12:00 12/21/24 12:30 12/21/24 12:30 Pulse Rate 82 80 Respiratory Rate 22 20 Blood Pressure 164/76 H Pulse Oximetry 96 98 Oxygen Delivery Method 12/21/24 13:00 12/21/24 13:00 12/21/24 13:23 Pulse Rate 79 84 Respiratory Rate 16 24 Blood Pressure 151/70 H Pulse Oximetry 97 Oxygen Delivery Method 12/21/24 13:23 12/21/24 13:30 12/21/24 13:30 Pulse Rate 81 Respiratory Rate 19 Blood Pressure 197/93 H 195/84 H Pulse Oximetry Oxygen Delivery Method 12/21/24 14:00 12/21/24 14:00 12/21/24 14:14 Pulse Rate 79 80 Respiratory Rate 18 18 Blood Pressure 199/85 H Pulse Oximetry 97 98 Oxygen Delivery Method Room Air 12/21/24 14:30 12/21/24 14:31 12/21/24 14:31 Pulse Rate 84 84 Respiratory Rate 27 H 29 H Blood Pressure 201/81 H Pulse Oximetry 100 100 Oxygen Delivery Method 12/21/24 15:00 12/21/24 15:01 12/21/24 15:01 Pulse Rate 91 H 90 Respiratory Rate 25 H 24 Blood Pressure 175/73 H Pulse Oximetry 94 94 Oxygen Delivery Method 12/21/24 15:29 12/21/24 16:01 12/21/24 16:02 Pulse Rate 108 H 87 Respiratory Rate 26 H Blood Pressure 177/79 H Pulse Oximetry 90 L 92 Oxygen Delivery Method 12/21/24 16:02 Pulse Rate 84 Respiratory Rate 22 Blood Pressure Pulse Oximetry 95 Oxygen Delivery Method Fraction of Inspired Oxygen 21 SaO2/FiO2 Ratio 457 Oxygen Delivery Method Room Air Narrative Exam Narrative: General:? Patient is well developed and well nourished, in no distress at this time. HEENT:? Normocephalic, atraumatic, extraocular muscles intact, oral pharynx is clear and mucous membranes are moist. Neck: supple and symmetric, trachea is midline, no cervical adenopathy. Negative for JVD Chest:? Normal AP diameter and contour without kyphoscoliosis, no tachypnea, equal chest rise bilaterally. Lungs:? Left lower lobe rhonchi, no rales, no wheezing Cardio:?RRR no m/r/g. Abdomen: S NT ND. Musculoskeletal:? Muscle strength and tone are equal within normal limits, no deformity. Extremities: No edema or joint effusions. No cyanosis or clubbing. Skin:? Pale,? Warm to touch,dry and intact without rashes, ulcerations or petechiae.? Neuro:? Alert and orientated to name, location, and year,? sensation to touch intact in all extremities, no gross deficits noted of cranial nerves. Psych:? Patient has a well-kept appearance, appropriate affect, mental status attitude thought context and judgment are appropriate for age. Objective ECG Impression: Normal sinus rhythm, no evidence for acute ischemia Imaging CT scan - chest: Radiologist's impression: IMPRESSION: 1. No pulmonary embolus. No thoracic aortic aneurysm or gross dissection. 2. Masslike consolidation seen in anterior aspect of left upper lobe and posterior medial aspect of left lower lobe near left lung base. Additional ill-defined airspace opacities also seen in left upper lobe and right lower lobe. Finding may represent bilateral multilobar infiltrates. Follow-up until resolution is recommended to rule out underlying neoplastic process. No pleural effusion or pneumothorax. 3. Mild cardiomegaly, no pericardial effusion. No gross mediastinal or hilar lymphadenopathy. 2 vessel coronary artery atherosclerotic calcifications. Small to moderate size hiatal hernia. Labs 12/21/24 09:59 12/21/24 09:59 Labs: Laboratory Results - last 24 hr 12/21/24 12/21/24 12/21/24 09:59 12:00 14:45 WBC 12.5 H D RBC 4.03 Hgb 9.7 L Hct 30.5 L MCV 75.6 L MCH 24.1 L MCHC 31.8 RDW 17.9 H Plt Count 317 Neut % (Auto) 79.9 H D Lymph % (Auto) 12.2 L [place] % (Auto) 6.9 Eos % (Auto) 0.4 L Baso % (Auto) 0.6 Neut # (Auto) 24728 H Lymph # (Auto) 1500 [place] # (Auto) 900 Eos # (Auto) 0 Baso # (Auto) 100 PT 11.4 INR 1.0 Sodium 142 Potassium 3.8 Chloride 107 Carbon Dioxide 23 BUN 19 H Creatinine 0.63 Estimated GFR > 60 BUN/Creatinine Ratio 30.2 H Glucose 103 Lactate 2.8 H 3.1 H 2.8 H Calcium 8.6 Total Bilirubin 0.6 AST 41 H ALT 27 Alkaline Phosphatase 86 Troponin I 0.013 NT-Pro-B Natriuret Pep 770 H Total Protein 7.2 Albumin 4.1 Globulin 3.1 Albumin/Globulin Ratio 1.3 12/21/24 12/21/24 16:25 16:40 WBC RBC Hgb Hct MCV MCH MCHC RDW Plt Count Neut % (Auto) Lymph % (Auto) [place] % (Auto) Eos % (Auto) Baso % (Auto) Neut # (Auto) Lymph # (Auto) [place] # (Auto) Eos # (Auto) Baso # (Auto) PT INR Sodium Potassium Chloride Carbon Dioxide BUN Creatinine Estimated GFR BUN/Creatinine Ratio Glucose Lactate 4.0 H Calcium Total Bilirubin AST ALT Alkaline Phosphatase Troponin I < 0.012 NT-Pro-B Natriuret Pep Total Protein Albumin Globulin Albumin/Globulin Ratio Assessment & Plan Assessment & Plan narrative: 1. Left upper lobe pneumonia, acute, present on admission - start ceftriaxone and doxycycline IV, after apparent failure of augmentin and doxycycline - PORT score showing class IV risk with tachypnea, age. Anticipate stay beyond two midnights. - given CT appearance, recommend repeat CT after completion of therapy as an outpatient to rule out underlying malignancy. - elevated lactate, continue to follow until <2. - leukocytosis possibly reactive to steroids 2. Possible COPD exacerbation - will hold on any steroids, these were prescribed the last two days and in the ER. They do not appear to be helping with her symptoms. - monitor off steroids. - can have albuterol prn 3. Hypertension, chronic - continue home HCTZ 4. Dementia, chronic - continue home denepezil and memantine 5. GERD, chronic - continue home PPI 6. HLD - continue home statin Code: Full, surrogate is patient's Son DVT: Lovenox daily I have utilized all available immediate resources to obtain, update, or review the patient's current medications. Dispo: patient admitted under inpatient status. Likely discharge home in 2-3 days depending on symptoms. Additional history obtained via discussions with the ER provider. These discussions contributed to the creation of the above assessment and plan. I have reviewed patient's presenting documentation, labs, and imaging personally. Time-Based Coding :: [TOTAL MINUTES] spent with patient and on the chart (including review of chart, obtaining history, exam, reviewing outside data, placing orders, documenting exam and treatment plan, and counseling patient) on [DATE].
[2024-12-21] MEDS: cefTRIAXone 1,000 MG in SODIUM CHLORIDE 0.9% 100 ML 200 MG IV (19:51)
[2024-12-21] MEDS: DOXYCYCLINE 100 MG in SODIUM CHLORIDE 0.9% 100 ML IV (21:04)
[2024-12-22] VITALS (14 sets, daily range): BP systolic 138–194; BP diastolic 60–103; PULSE 74–88; RESP 16–18; TEMP 36.1–37.2; O2SAT 92–98
[2024-12-22] MEDS: ACETAMINOPHEN 325 MG TABLET 650 MG PO (04:10)
[2024-12-22 07:13] LABS: Add Manual Diff / Slide Review NO; Basophils Absolute Auto 0 /uL (0-100); Basophils Percent Auto 0.4 % (0-2); Eosinophils Absolute Auto 0 /uL (0-450); Hematocrit 28.7 % (36-46); Hemoglobin 9.1 g/dL (12.0-16.0); Lymphocytes Absolute Auto 1600 /uL (1100-4500); Lymphocytes Percent Auto 17.6 % (25-40); Mean Corpuscular HGB Conc 31.9 % (30-36); Mean Corpuscular Hemoglobin 24.2 PG (26-34); Mean Corpuscular Volume 75.8 fL (80-100); Monocytes Absolute Auto 800 /uL (0-900); Monocytes Percent Auto 9.3 % (3-14); Neutrophils Absolute Auto 6500 /uL (1500-7000); Neutrophils Percent Auto 72.7 % (50-75); Platelet Count 277 X10^3/uL (150-400); Red Blood Cell Count 3.78 X10^6/uL (4.0-5.2); Red Cell Distribution Width 18.3 % (11.6-14.8); White Blood Cell Count 8.9 X10^3/uL (4.5-11.0)
[2024-12-22 07:26] LABS: BUN Creatinine Ratio 25.8 (6-22); Blood Urea Nitrogen 17 mg/dL (7-17); Calcium 8.5 mg/dL (8.4-10.2); Carbon Dioxide 24 mmol/L (22-32); Chloride 108 mmol/L (98-107); Estimated Glomerular Filt Rate > 60 mL/min (>60); Glucose 117 mg/dL (80-110); HEMOLYSIS < 15 (0-50); Potassium 3.7 mmol/L (3.4-5.1); Sodium 138 mmol/L (137-145)
[2024-12-22 07:27] LABS: Lactate (Lactic Acid) 1.4 mmol/L (0.7-2.1)
[2024-12-22] MEDS: DOXYCYCLINE 100 MG in SODIUM CHLORIDE 0.9% 100 ML IV ×2 (08:46→21:45)
[2024-12-22] MEDS: ENOXAPARIN 40 MG/0.4 ML SYRINGE SUBCUT (08:46)
--- NOTE | 2024-12-22 10:51 | PM.PN.1 ---
Subjective Subjective Interval history: Admitted with pna and dyspnea. S: Still coughing, and dyspneic with exertion. She was 84 in his has been ill for 4 weeks. She was not improving on oral antibiotics. Exam Vital Signs (past 8 hours): - 12/22/24 04:00 12/22/24 06:14 12/22/24 10:00 Temperature 99.0 F 97.9 F Pulse Rate 79 82 Respiratory Rate 16 18 Blood Pressure 178/97 H 140/96 H Pulse Oximetry 95 97 92 Oxygen Delivery Method Room Air Oxygen Flow Rate 0 0 95 Fraction of Inspired Oxygen 21 SaO2/FiO2 Ratio 457 Oxygen Delivery Method Room Air Oxygen Flow Rate 95 Narrative Exam Narrative: NAD, alert and oriented. Fluent speech. Lungs are notable for expiratory wheezing, and scattered rhonchi, normal rate and effort. She did become dyspneic with a short trip to the bathroom and back. Heart is regular, no murmur gallop or rub. Abdomen is soft, non distended. Extremities are free of edema. Objective Labs 12/22/24 06:40 12/22/24 06:50 Labs: Laboratory Results - last 24 hr 12/21/24 12/21/24 12/21/24 12:00 14:45 16:25 WBC RBC Hgb Hct MCV MCH MCHC RDW Plt Count Neut % (Auto) Lymph % (Auto) [place] % (Auto) Eos % (Auto) Baso % (Auto) Neut # (Auto) Lymph # (Auto) [place] # (Auto) Eos # (Auto) Baso # (Auto) Sodium Potassium Chloride Carbon Dioxide BUN Creatinine Estimated GFR BUN/Creatinine Ratio Glucose Lactate 3.1 H 2.8 H Calcium Troponin I < 0.012 12/21/24 12/22/24 12/22/24 16:40 06:40 06:50 WBC 8.9 RBC 3.78 L Hgb 9.1 L Hct 28.7 L MCV 75.8 L MCH 24.2 L MCHC 31.9 RDW 18.3 H Plt Count 277 Neut % (Auto) 72.7 Lymph % (Auto) 17.6 L [place] % (Auto) 9.3 Eos % (Auto) 0.0 L Baso % (Auto) 0.4 Neut # (Auto) 6500 Lymph # (Auto) 1600 [place] # (Auto) 800 Eos # (Auto) 0 Baso # (Auto) 0 Sodium 138 Potassium 3.7 Chloride 108 H Carbon Dioxide 24 BUN 17 Creatinine 0.66 Estimated GFR > 60 BUN/Creatinine Ratio 25.8 H Glucose 117 H Lactate 4.0 H 1.4 Calcium 8.5 Troponin I [facility] Medical History DDD (degenerative disc disease) Hypothyroidism Osteoarthritis GERD (gastroesophageal reflux disease) HLD (hyperlipidemia) HTN (hypertension) Aneurysm Dementia Hypertension, essential Surgical History History of arthroplasty of right knee (03/05/21) History of total right hip arthroplasty Hx of tonsillectomy History of hysterectomy History of inguinal hernia repair Social History household members: family and children Smoking Status: Former smoker alcohol intake: current Assessment & Plan Assessment & Plan narrative: 1. Left upper lobe pneumonia, acute, present on admission and active. - start ceftriaxone and doxycycline IV, after apparent failure of augmentin and doxycycline - PORT score showing class IV risk with tachypnea, age. Anticipate stay beyond two midnights. - given CT appearance, recommend repeat CT after completion of therapy as an outpatient to rule out underlying malignancy. - elevated lactate, continue to follow until <2. - leukocytosis possibly reactive to steroids 2. Possible COPD exacerbation, present on admission and active. - will hold on any steroids, these were prescribed the last two days and in the ER. They do not appear to be helping with her symptoms. - monitor off steroids. - can have albuterol prn 3. Hypertension, chronic, stable. - continue home HCTZ 4. Dementia, chronic. Stable. - continue home denepezil and memantine 5. GERD, chronic. Stable. - continue home PPI 6. HLD. Stable. - continue home statin PLAN: -given the marginal degree of improvement and pronounced dyspnea with exertion we will continue IV antibiotics for another midnight. -continue steroids for another night as well. -anticipate probable discharge on December 23. She lives in [place] with her son. Code: Full, surrogate is patient's Son DVT: Lovenox daily Time-Based Coding :: [TOTAL MINUTES] spent with patient and on the chart (including review of chart, obtaining history, exam, reviewing outside data, placing orders, documenting exam and treatment plan, and counseling patient) on [DATE].
--- NOTE | 2024-12-22 13:09 | CM.DANOTE ---
DCP Assessment Note pt is a 84yo F admitted under OBS with pneumonia. PCP Erica Vaughn Payer Medicare and [employer] RESEARCH GROUP DIRECTOR reviewed EMR Per chart, pt previously in our ED, dc'd on PO abx, and returned after symptoms persisted. per provider in morning rounds, anticpate dc tomorrow after another day of IV abx. per chart, pt on room air. per RN, pt mobilizing well at her baseline with her cane. pleasantly confused, has short term memory impairments at baseline. RESEARCH GROUP DIRECTOR spoke with son/DPANSHUL Omar ([phone]). Per son, pt lives with him in [place]. moved in with him from [place] about a year ago due to pt's declining cognition. she is able to complete most ADLs indep, but he helps her with managing her meds/prompting her as needed/meal prep/higher ADLs. Cane at baseline but also has a three wheeled scooter for longer distances. no hx of HH. son primary transport. son reports jail memory in [facility]. reports they have a good set up at home. denies any DCP/CM needs at this time. is anticipating pt to dc tomorrow pending medical stability, plans to transport home. P: anticipate dc home with son to transport tomorrow pending medical stability.no CM needs identified at this time, will continue to follow as needed SUMAYA Yadav Discharge Planning/Care Management CM Discharge Assessment Start: 12/22/24 13:05 Freq: Status: Active Protocol: Document 12/22/24 13:06 (Rec: 12/22/24 13:09 Desktop) Discharge Planning Assessment Assigned [employer] SUMAYA Wright/Assigned Designee Name rodríguez Nelson Contact Information [phone] Advance Directives? Yes: Yes;DOPA Advance Directives on File Yes History Provided By Patient,Family Member,Medical Record Prior Living Arrangements House Household Members family,children Type of transporation used prior to Relies on Others admit Is patient alert and oriented? short term memory impairments Needs Assistance With Meal Prep,Managing Medications ,Home Chores / Shopping Comment son assists with higher ADLs DME Already Rented / Owned Cane Comment three wheeled scooter Discharge Plan Home Transportation Arrangement Son Referrals Initiated None needed Review Status In Process Please Provide Date Initial DC 12/22/24 Assessment Was Performed Next Review Type Continued Stay Review
[2024-12-22] MEDS: BENZOCAINE/MENTHOL 1 LOZ PKT 1 EACH PO (15:40)
[2024-12-22] MEDS: BENZONATATE 100 MG CAPSULE PO (15:40)
[2024-12-22] MEDS: guaiFENesin ER 600 MG TAB PO ×2 (15:40→20:19)
[2024-12-22] MEDS: cefTRIAXone 1,000 MG in SODIUM CHLORIDE 0.9% 100 ML 200 MG IV (20:19)
[2024-12-23] VITALS (13 sets, daily range): BP systolic 138–180; BP diastolic 79–98; PULSE 66–94; RESP 14–24; TEMP 35.9–37.2; O2SAT 95–97
[2024-12-23] MEDS: LOSARTAN 50 MG TABLET 100 MG PO ×2 (01:29→09:48)
[2024-12-23] MEDS: BENZONATATE 100 MG CAPSULE PO (02:53)
[2024-12-23] MEDS: OXYCODONE IR 5 MG TABLET PO (02:53)
[2024-12-23 07:45] LABS: Add Manual Diff / Slide Review NO; Basophils Absolute Auto 100 /uL (0-100); Basophils Percent Auto 0.7 % (0-2); Eosinophils Absolute Auto 100 /uL (0-450); Eosinophils Percent Auto 1.2 % (2-4); Hematocrit 28.7 % (36-46); Hemoglobin 9.3 g/dL (12.0-16.0); Lymphocytes Absolute Auto 2800 /uL (1100-4500); Lymphocytes Percent Auto 33.7 % (25-40); Mean Corpuscular HGB Conc 32.3 % (30-36); Mean Corpuscular Hemoglobin 24.3 PG (26-34); Mean Corpuscular Volume 75.1 fL (80-100); Monocytes Absolute Auto 700 /uL (0-900); Monocytes Percent Auto 8.4 % (3-14); Neutrophils Absolute Auto 4600 /uL (1500-7000); Platelet Count 271 X10^3/uL (150-400); Red Blood Cell Count 3.81 X10^6/uL (4.0-5.2); White Blood Cell Count 8.3 X10^3/uL (4.5-11.0)
[2024-12-23 07:56] LABS: BUN Creatinine Ratio 23.8 (6-22); Blood Urea Nitrogen 20 mg/dL (7-17); Calcium 8.2 mg/dL (8.4-10.2); Carbon Dioxide 24 mmol/L (22-32); Chloride 108 mmol/L (98-107); Estimated Glomerular Filt Rate > 60 mL/min (>60); Glucose 84 mg/dL (80-110); HEMOLYSIS < 15 (0-50); Potassium 3.6 mmol/L (3.4-5.1); Sodium 140 mmol/L (137-145)
[2024-12-23] MEDS: predniSONE 20 MG TABLET PO (09:48)
[2024-12-23] MEDS: guaiFENesin ER 600 MG TAB PO ×2 (09:48→20:23)
[2024-12-23] MEDS: ATORVASTATIN 20 MG TABLET 40 MG PO (09:48)
[2024-12-23] MEDS: ENOXAPARIN 40 MG/0.4 ML SYRINGE SUBCUT (09:48)
[2024-12-23] MEDS: DOXYCYCLINE 100 MG in SODIUM CHLORIDE 0.9% 100 ML IV ×2 (09:54→21:16)
[2024-12-23] MEDS: ACETAMINOPHEN 325 MG TABLET 650 MG PO (10:06)
--- NOTE | 2024-12-23 11:06 | CM.DPC ---
DCP Cont. Reviewed EMR and team rounds for status updates. Pt has been medically cleared for home d/c. Her son will transport. No further CM d/c needs are indicated at this time.
[2024-12-23] MEDS: methylPREDNISolone 125 MG/2 ML VIAL IV (11:07)
--- NOTE | 2024-12-23 11:22 | P.PN_ITS ---
Subjective Subjective Interval history: Summary: 84-year-old female with a 20 year history of smoking presented with a protracted cough and was admitted for pneumonia and has a lot of wheezing consistent with a COPD exacerbation. S: She is little less dyspneic but still very wheezy audibly even from across the room. Her cough has decreased. She was dyspnea with exertion. Exam Vital Signs (past 8 hours): - 12/23/24 08:06 Temperature 96.8 F L Pulse Rate 72 Respiratory Rate 16 Blood Pressure 146/87 H Pulse Oximetry 97 Oxygen Flow Rate 0 Fraction of Inspired Oxygen 21 SaO2/FiO2 Ratio 457 Oxygen Delivery Method Room Air Oxygen Flow Rate 0 Narrative Exam Narrative: NAD, alert and oriented. Fluent speech. Lungs are very wheezy with primarily expiratory wheezing, normal rate and effort. Heart is regular, no murmur gallop or rub. Abdomen is soft, non distended. Extremities are free of edema. Objective Labs 12/23/24 07:30 12/23/24 07:30 Labs: Laboratory Results - last 24 hr 12/23/24 07:30 WBC 8.3 RBC 3.81 L Hgb 9.3 L Hct 28.7 L MCV 75.1 L MCH 24.3 L MCHC 32.3 RDW 18.0 H Plt Count 271 Neut % (Auto) 56.0 Lymph % (Auto) 33.7 [place] % (Auto) 8.4 Eos % (Auto) 1.2 L Baso % (Auto) 0.7 Neut # (Auto) 4600 Lymph # (Auto) 2800 [place] # (Auto) 700 Eos # (Auto) 100 Baso # (Auto) 100 Sodium 140 Potassium 3.6 Chloride 108 H Carbon Dioxide 24 BUN 20 H Creatinine 0.84 Estimated GFR > 60 BUN/Creatinine Ratio 23.8 H Glucose 84 Calcium 8.2 L PFSH Medical History DDD (degenerative disc disease) Hypothyroidism Osteoarthritis GERD (gastroesophageal reflux disease) HLD (hyperlipidemia) HTN (hypertension) Aneurysm Dementia Hypertension, essential Surgical History History of arthroplasty of right knee (03/05/21) History of total right hip arthroplasty Hx of tonsillectomy History of hysterectomy History of inguinal hernia repair Social History household members: family and children Smoking Status: Former smoker alcohol intake: current Assessment & Plan Assessment & Plan narrative: 1. Left upper lobe pneumonia, acute, present on admission and improving. - ceftriaxone and doxycycline IV, after apparent failure of augmentin and doxycycline - PORT score showing class IV risk with tachypnea, age. Anticipate stay beyond two midnights. - given CT appearance, recommend repeat CT after completion of therapy as an outpatient to rule out underlying malignancy. - elevated lactate, continue to follow until <2. 2. COPD exacerbation (20 Pack year history), present on admission and active. - will hold on any steroids, these were prescribed the last two days and in the ER. They do not appear to be helping with her symptoms. - added steroids. - albuterol PRN 3. Hypertension, chronic, stable. - continue home HCTZ 4. Dementia, chronic. Stable. - continue home denepezil and memantine 5. GERD, chronic. Stable. - continue home PPI 6. HLD. Stable. - continue home statin PLAN: -Added IV solumedrol. Continue nebs and antibiotics. -anticipate probable discharge on December 24. She lives in [place] with her son. -discussed with ehr son. Time-Based Coding :: [TOTAL MINUTES] spent with patient and on the chart (including review of chart, obtaining history, exam, reviewing outside data, placing orders, documenting exam and treatment plan, and counseling patient) on [DATE].
--- NOTE | 2024-12-23 11:38 | CM.DPC ---
DCP Cont. Reviewed EMR and team rounds for status updates. Pt will need 1-more day before being medically stable for d/c. She is still wheezing, will need more steroid tx's today. Monitoring for tomorrow d/c.
[2024-12-23] MEDS: hydroCHLOROthiazide 25 MG TABLET 12.5 MG PO (12:06)
[2024-12-23] MEDS: MEMANTINE HCL 5 MG TABLET 10 MG PO (16:10)
[2024-12-23] MEDS: BENZOCAINE/MENTHOL 1 LOZ PKT 1 EACH PO (18:24)
[2024-12-23] MEDS: methylPREDNISolone 125 MG/2 ML VIAL 60 MG IV (18:48)
[2024-12-23] MEDS: DONEPEZIL 5 MG TABLET 10 MG PO (20:23)
[2024-12-23] MEDS: cefTRIAXone 1,000 MG in SODIUM CHLORIDE 0.9% 100 ML 200 MG IV (20:24)
[2024-12-23] MEDS: MELATONIN 3 MG TABLET 6 MG PO (21:05)
[2024-12-24] MEDS: methylPREDNISolone 125 MG/2 ML VIAL 60 MG IV ×2 (00:26→05:36)
[2024-12-24 03:00] VITALS: O2SAT 95
[2024-12-24 04:00] VITALS: BP 165/96; PULSE 96; RESP 16; TEMP 36.4; O2SAT 97
[2024-12-24 05:19] LABS: Add Manual Diff / Slide Review NO; Basophils Absolute Auto 0 /uL (0-100); Basophils Percent Auto 0.1 % (0-2); Eosinophils Absolute Auto 0 /uL (0-450); Hematocrit 31.8 % (36-46); Hemoglobin 10.3 g/dL (12.0-16.0); Lymphocytes Absolute Auto 1500 /uL (1100-4500); Lymphocytes Percent Auto 17.2 % (25-40); Mean Corpuscular HGB Conc 32.4 % (30-36); Mean Corpuscular Hemoglobin 24.2 PG (26-34); Mean Corpuscular Volume 74.7 fL (80-100); Monocytes Absolute Auto 200 /uL (0-900); Monocytes Percent Auto 2.7 % (3-14); Neutrophils Absolute Auto 6800 /uL (1500-7000); Platelet Count 330 X10^3/uL (150-400); Red Blood Cell Count 4.26 X10^6/uL (4.0-5.2); White Blood Cell Count 8.5 X10^3/uL (4.5-11.0)
[2024-12-24 05:27] LABS: Blood Urea Nitrogen 28 mg/dL (7-17); Carbon Dioxide 20 mmol/L (22-32); Chloride 106 mmol/L (98-107); Estimated Glomerular Filt Rate > 60 mL/min (>60); Glucose 150 mg/dL (80-110); HEMOLYSIS < 15 (0-50); Potassium 3.6 mmol/L (3.4-5.1); Sodium 137 mmol/L (137-145)
[2024-12-24] MEDS: PANTOPRAZOLE DR 20 MG TABLET PO (05:36)
[2024-12-24 07:00] VITALS: O2SAT 96
[2024-12-24 08:04] VITALS: PULSE 84; RESP 20; O2SAT 99
[2024-12-24] MEDS: ALBUTEROL 2.5 MG/3 ML NEB (ADULT) INH (08:04)
[2024-12-24 08:16] VITALS: BP 145/104; PULSE 80; RESP 18; TEMP 36.3; O2SAT 95
[2024-12-24] MEDS: guaiFENesin ER 600 MG TAB PO (08:40)
[2024-12-24] MEDS: ATORVASTATIN 20 MG TABLET 40 MG PO (08:40)
[2024-12-24] MEDS: ENOXAPARIN 40 MG/0.4 ML SYRINGE SUBCUT (08:40)
[2024-12-24] MEDS: LOSARTAN 50 MG TABLET 100 MG PO (08:41)
[2024-12-24] MEDS: predniSONE 20 MG TABLET PO (08:41)
[2024-12-24] MEDS: hydroCHLOROthiazide 25 MG TABLET 12.5 MG PO (08:41)
[2024-12-24] MEDS: ACETAMINOPHEN 325 MG TABLET 650 MG PO (09:13)
--- NOTE | 2024-12-24 09:59 | PC.NURSE ---
Addendum entered by Yoli Zelaya R.N. 12/24/24 11:32: Pt received discharge orders. . Denies discomfort. SL D/C'd intact. Home instructions given w/understanding Pt escorted by staff via W/C to waiting vehicle in stable status. Original Note: Pt A/O Denies any discomfort. Ambulated in hallway w/staff. Lungs w/ faint exp. wheeze noted that clears w/cough. SpO2 95% Orders for discharge given. Call light w/in reach. Pt calls appropriately for needs COntinue w/plan of care.
--- NOTE | 2024-12-24 11:09 | CM.DPNOTE ---
DCP Continued: Reviewed EMR and team rounds for pt?s medical status. Per hospitalist, pt is cleared to discharge home with prescribed PO abx and steroids. Discussed pt with RN, states pt is awaiting transport (son) to arrive at bedside. No discharge needs identified at this time. Plan: Discharge orders are in, anticipating dc home with son to transport. CM Team will continue to follow for coordination of discharge plans. ALISE Ortega
--- NOTE | 2024-12-24 12:37 | P.DS_ITS ---
History of Present Illness History of Present Illness Date Patient Seen: 12/24/24 Time Patient Seen: 09:30 Chief complaint: here T-1 pneumonia getting worse Narrative: 84 F with PMH of HTN, HLD, dementia who presented to the ER 2 days ago. She was diagnosed with human metapneumovirus and possible bacterial pneumonia and was discharged on Augmentin and doxycycline as well as prednisone. Patient denies any fever, chest pain, shortness and breath at rest or wheezing. But she has been more short of breath, with continued bad cough over the last couple of days. She has also tried albuterol which has not been very helpful for her. She denies any nausea, vomiting, abdominal pain, rash, lower extremity edema, orthopnea. She was a previous smoker. She lives with her son in [place]. In the emergency room, the patient was mildly hypertensive, briefly tachycardic, but not febrile. Her oxygen saturation was normal on room air, but she was quite tachypneic into the 30s. WBC was elevated at 12.5, hemoglobin was down slightly to 9.7 from previously just above 10. MCV is low at 75.6. Chemistry panel was largely unremarkable except for mildly elevated lactate. Troponins were negative. ProBNP was slightly elevated at 770. Chest x-ray showed a mild pulmonary vascular congestion. Given her tachypnea and tachycardia that were present CT angiogram was performed to rule out PE which was negative per PE but did show a masslike consolidation in the left lower lobe. Her port score showed a class 4 risk for pneumonia, she was admitted for further management after failing outpatient antibiotic therapy for pneumonia. Discharge Providers Provider Date of admission: 12/23/24 11:39 Discharge Date: 12/24/24 Primary care physician: Erica Vaughn PA-C Discharge provider: Nikko Lujan MD Summary Hospital Course Discharge Diagnosis: 1. Left upper lobe pneumonia, community acquired. 2. COPD exacerbation (20 Pack year history) due to #1. 3. Hypertension. 4. Dementia. 5. GERD. 6. Hyperlipidemia. Hospital Course: The patient was admitted and treated with combination of IV antibiotics with ceftriaxone and doxycycline given apparent failure of Augmentin and doxycycline outpatient. Given a PORT score showing class 4 risk with tachypnea, and age, anticipated stay was beyond 2 midnights, and she was transitioned to inpatient care. A repeat CT scan following completion of therapy is recommended as an outpatient to rule out underlying malignancy. She demonstrated evidence of bronchospasm with wheezing and was started on IV steroids following hospitalization, transitioned to oral at discharge, in addition to frequently administered bronchodilators. She was feeling much better and able to get up and walk without assistance, and interested in discharge home where she lives with her son, having just moved to the area from [place] 10 days prior. No other issues arose. Status at Discharge Cognitive/behavioral status at discharge: oriented Functional status at discharge: independent ambulation Overall status at discharge: patient is progressing back to baseline Time Spent with Patient Time spent: Greater than 30 minutes Exam Vital Signs (past 8 hours): - 12/24/24 07:00 12/24/24 08:04 12/24/24 08:16 Temperature 97.4 F L Pulse Rate 84 80 Respiratory Rate 20 18 Blood Pressure 145/104 H Pulse Oximetry 96 99 95 Oxygen Delivery Method Room Air Room Air Oxygen Flow Rate 0 Fraction of Inspired Oxygen 21 SaO2/FiO2 Ratio 457 Oxygen Delivery Method Room Air Oxygen Flow Rate 0 Narrative Exam Narrative: NAD, alert and oriented. Fluent speech. Lungs if mild wheezing, improved, with good air movement, nonlabored breathing. Heart is regular, no murmur gallop or rub. Abdomen is soft, non distended. Extremities are free of edema. Objective ECG Impression: Normal sinus rhythm, no evidence for acute ischemia Imaging CT scan - chest: Radiologist's impression: IMPRESSION: 1. No pulmonary embolus. No thoracic aortic aneurysm or gross dissection. 2. Masslike consolidation seen in anterior aspect of left upper lobe and posterior medial aspect of left lower lobe near left lung base. Additional ill-defined airspace opacities also seen in left upper lobe and right lower lobe. Finding may represent bilateral multilobar infiltrates. Follow-up until resolution is recommended to rule out underlying neoplastic process. No pleural effusion or pneumothorax. 3. Mild cardiomegaly, no pericardial effusion. No gross mediastinal or hilar lymphadenopathy. 2 vessel coronary artery atherosclerotic calcifications. Small to moderate size hiatal hernia. Labs 12/24/24 04:57 12/24/24 04:57 Labs: Laboratory Results - last 24 hr 12/24/24 04:57 WBC 8.5 RBC 4.26 Hgb 10.3 L Hct 31.8 L MCV 74.7 L MCH 24.2 L MCHC 32.4 RDW 18.0 H Plt Count 330 Neut % (Auto) 80.0 H D Lymph % (Auto) 17.2 L [place] % (Auto) 2.7 L Eos % (Auto) 0.0 L Baso % (Auto) 0.1 Neut # (Auto) 6800 Lymph # (Auto) 1500 [place] # (Auto) 200 Eos # (Auto) 0 Baso # (Auto) 0 Sodium 137 Potassium 3.6 Chloride 106 Carbon Dioxide 20 L BUN 28 H Creatinine 0.80 Estimated GFR > 60 BUN/Creatinine Ratio 35.0 H Glucose 150 H Calcium 9.0 PFSH Medical History DDD (degenerative disc disease) Hypothyroidism Osteoarthritis GERD (gastroesophageal reflux disease) HLD (hyperlipidemia) HTN (hypertension) Aneurysm Dementia Hypertension, essential Surgical History History of arthroplasty of right knee (03/05/21) History of total right hip arthroplasty Hx of tonsillectomy History of hysterectomy History of inguinal hernia repair Social History household members: family and children Smoking Status: Former smoker alcohol intake: current Discharge Plan Discharge Plan Patient Disposition: Home Provider Discharge Comment: Followup with Erica Vaughn PA-C 1 week; followup CT advised when resolved clinically Discharge orders & Medications Prescriptions: New cefuroxime axetil 500 mg tablet 500 mg PO BID Qty: 10 0RF doxycycline hyclate 100 mg tablet 100 mg PO BID Qty: 10 0RF prednisone 10 mg tablet 10 mg PO DAILY Qty: 20 0RF Rx Instructions: administer with food or milk, take 4 tabs daily x 2 days, then 3 tabs daily x 2 days, then 2 tabs daily x 2 days, then 1 tab daily x 2 days Continued atorvastatin 40 mg Tablet 40 mg PO DAILY donepezil 10 mg Tablet 10 mg PO BEDTIME candesartan 16 mg Tablet 16 mg PO DAILY omeprazole 20 mg Capsule,Delayed Release(Dr/Ec) 20 mg PO DAILY hydrochlorothiazide 25 mg Tablet 12.5 mg PO DAILY memantine 10 mg Tablet 10 mg PO QPM oxycodone 5 mg Tablet 5 mg PO Q4H PRN (Reason: Pain, Moderate (4-6)) Qty: 40 0RF doxycycline hyclate 100 mg capsule 100 mg PO BID Qty: 20 0RF prednisone 20 mg tablet 20 mg PO DAILY Qty: 5 0RF Follow up/Referrals: Erica Vaughn, PAErastoC [Primary Care Provider] - Diet/Activity/Treatments Diet: Regular Visit Report/Discharge Packet Stand Alone Forms: Patient Portal/API, Stroke Signs & Symptoms Discharge Data Primary Care Provider: Erica Vaughn Quality MIPS - Admit I confirm the patient?s Advance Care Plan is present, Code status is documented, Surrogate decision maker is in patient?s record [If Yes, STOP here]: Yes MIPS - Meds 'Current medications' to include all prescriptions, uorl-tho-xhsshrg products, herbals, cannabis/cannabidiol products, and vitamin/mineral/dietary (nutritional) supplements. I have utilized all available resources to obtain, update, or review the patient?s current medications. [If Yes, STOP here]: Yes MIPS - DC The patient has a history of heart transplant or Left Ventricular Assist Device (LVAD). If yes, STOP here.: No The patient has current or prior documentation of left ventricular ejection fraction (LVEF) less than or equal to 40%, or moderate or severely depressed left ventricular systolic function.: No A. The patient was prescribed or already taking an Angiotensin-Converting Enzyme (MARIA L) Inhibitor, or Angiotensin Receptor Alfredo (ARB).: Yes B. The patient was prescribed or already taking a beta-alfredo. [If Yes to Both A & B, STOP here]: No Patient not prescribed/taking MARIA L or ARB, no reason given.: No Patient not prescribed/taking beta-alfredo, no reason given.: No PROFEE Charge Codes Discharge inpatient/observation: 33306
== END 2024-12-24 11:30 | disposition home or self-care (01) | DRG 194 ==
LOC: ED 16:34 → AC 17:37
PROVIDERS: Internal Medicine; Admitting Provider Internal Medicine; Emergency Provider Emergency Medicine; PCP Physician Assistant; Referring Provider Emergency Medicine; Visit Provider Internal Medicine
DX: J12.3 Human metapneumovirus pneumonia (principal); J44.1 Chronic obstructive pulmonary disease with (acute) exacerbation; I10 Essential (primary) hypertension; F03.90 Unspecified dementia, unspecified severity, without behavioral disturbance, psychotic disturbance, mood disturbance, and anxiety; J15.9 Unspecified bacterial pneumonia; K21.9 Gastro-esophageal reflux disease without esophagitis; E78.5 Hyperlipidemia, unspecified; R91.8 Other nonspecific abnormal finding of lung field; Z79.52 Long term (current) use of systemic steroids; Z87.891 Personal history of nicotine dependence
CPT/HCPCS: 36415; 71045; 71275; 80048; 80053; 83605; 83880; 84484; 85025; 85610; 93005; 93010; 94640; 94760; 96361; 96365; 96375; 99284; 99285; G0378; J0696; J1650; J2919; J3475; J7613; Q9967